=== PATIENT | female | born 1990 | race Caucasian/White ===

== ENCOUNTER 2016-12-03 09:05 | Emergency (ER) | payer OTHER ==
[2016-12-03 09:10] VITALS: BP 107/60; PULSE 84; TEMP 97.9; BMI 41.3
--- NOTE | 2016-12-03 09:26 | PDOC ---
History of Present Illness - General Chief Complaint: Vaginal Bleeding Stated Complaint: 6 WKS , BLEEDING Time Seen by Provider: 12/03/16 09:25 History Source: Patient Exam Limitations: No Limitations - History of Present Illness Travel History: No Initial Comments: 12/03/16 09:25 c/o vag LMP 10/01, bleeding. And found to be in October. Dates was seen at [facility] for a scant amount of vaginal bleeding and was discharged with a diagnosis of threatened AB. States bleeding resolved, and had felt well since. Was seen by her private physician on November 27 who did a thorough exam and cleared to be healthy, saw VICE [employer]IDENT [employer] doctor on the and was told her beta hCG was 5000. States this morning when she woke up she found right red blood in her underwear, no clots or redness type substance, but also experiencing cramping in her abdomen. States is wearing a pad now and still has bleeding but is not profuse. Is 7 para 5, elective AB 1. Her, nausea vomiting diarrhea or constipation, denies any bowel problems. Denies any vaginal drainage other than bleeding. 5 children at home are all healthy and born vaginally 12/03/16 09:43 Timing/Duration: reports: getting worse Quality: reports: mild Abdominal Pain Onset Location: reports: generalized abdomen Activities at Onset: reports: none Aggravating Factors: improves with: None Alleviating Factors: improves with: None Past History - Travel Traveled outside of the country in the last 30 days: No Close contact w/someone who was outside of country & ill: No - Past Medical History Allergies/Adverse Reactions: Allergies Allergy/AdvReac Type Severity Reaction Status Date / Time No Known Allergies Allergy Verified 12/03/16 09:10 Home Medications: Ambulatory Orders NK [No Known Home Medication] 12/03/16 Anemia: Yes Asthma: Yes (No meds) Cancer: No Cardiac Disorders: No Diabetes: No HTN: No Seizures: No Thyroid Disease: No - Psycho/Social/Smoking Cessation Hx Anxiety: No Suicidal Ideation: No Smoking History: Never smoked Have you smoked in the past 12 months: No Hx Alcohol Use: No Drug/Substance Use Hx: No Hx Substance Use Treatment: No Abd/GI Specific PMHX - Complaint Specific PMHX Colitis: No Review of Systems - Review of Systems Able to Perform ROS?: Yes Is the patient limited Pashto proficient: Yes Constitutional: Yes: Symptoms Reported, Malaise HEENTM: Yes: See HPI. No: Symptoms Reported *Physical Exam - Vital Signs Last Vital Signs Temp Pulse Resp BP Pulse Ox 97.9 F 84 16 107/60 98 12/03/16 09:08 12/03/16 09:08 12/03/16 09:08 12/03/16 09:08 12/03/16 09:08 - Physical Exam General Appearance: Yes: Nourished, Appropriately Dressed, Apparent Distress, Mild Distress HEENT: positive: MICAELA, Normal ENT Inspection, TMs Normal, Pharynx Normal Neck: positive: Supple, Other. negative: Tender, Lymphadenopathy (R), Lymphadenopathy (L) Respiratory/Chest: positive: Lungs Clear, Normal Breath Sounds Cardiovascular: positive: Regular Rate Gastrointestinal/Abdominal: positive: Tender (generalize tenderness, with mildly worse at suprapubic. No rebound or guarding. Difficult to assess as patient is morbidly obese), Soft Extremity: positive: Normal Capillary Refill, Normal Inspection, Normal Range of Motion Integumentary: positive: Normal Color, Warm, Pale Neurologic: positive: cartridge gauger II-XII NML intact, Fully Oriented, Alert, Normal Mood/ Affect, Normal Response, Motor Strength 02/09 ED Treatment Course - LABORATORY CBC & Chemistry Diagram: 12/03/16 09:29 Progress Note - Progress Note Progress Note: Threatened AB, will obtain labs, and then ultrasound. Patient updated to plan Medical Decision Making - Medical Decision Making 12/03/16 14:00 Beta hCG resident [id number], ultrasound reveals an intrauterine . Patient informed these results, we'll discharge and have follow-up with ADMISSIONS GATE ATTENDANT for *DC/Admit/Observation/Transfer Diagnosis at time of Disposition: Threatened in early - Discharge Dispostion Disposition: HOME Condition at time of disposition: Stable Admit: No - Patient Instructions Printed Discharge Instructions: DI for Threatened Additional Instructions: Rest, drink lots of fluids: Teas, water, soups Continue [id number] medications for symptomatic relief Tylenol for fever and pain May use Zofran-one tablet dissolved on tongue as needed for nauseousness. May repeat times one every 8 hours Followup with private physician in one to 2 days as needed Return to emergency department for worsened symptoms, vaginal bleeding, cramping , fevers, dehydration - Post Discharge Activity Work/School Note: Back to Work
--- NOTE | 2016-12-03 09:30 | PDOC ---
*Physical Exam - Vital Signs Last Vital Signs Temp Pulse Resp BP Pulse Ox 97.9 F 84 16 107/60 98 12/03/16 09:08 12/03/16 09:08 12/03/16 09:08 12/03/16 09:08 12/03/16 09:08 - Physical Exam Comments: 12/03/16 09:30 MIDLEVEL NOTE Pt seen by Midlevel Provider under my direct supervision. Pt interviewed and examined. Ancillary studies reviewed. I agree with plan as outlined by Midlevel Provider. Laboratory Results - last 24 hr 12/03/16 12/03/16 12/03/16 09:29 09:29 09:43 WBC 7.8 RBC 4.48 Hgb 11.2 Hct 35.0 MCV 78.2 L MCHC 32.0 RDW 14.2 Plt Count 268 D MPV 8.2 D Neutrophils % 66.5 Lymphocytes % 22.7 Monocytes % 6.4 Eosinophils % 3.8 D Basophils % 0.6 Beta HCG, Quant 80410.4 Urine Color Yellow Urine Appearance Slcloudy Urine pH 7.0 Ur Specific [place] 1.014 Urine Protein Negative Urine Glucose (UA) Negative Urine Ketones Negative Urine Blood 3+ H Urine Nitrite Negative Urine Bilirubin Negative Urine Urobilinogen Negative Ur Leukocyte Esterase 1+ H 12/03/16 13:40 Pelvic ultrasound Single IUP, 6 weeks and 4 days 1.7 cm left ovarian cyst with intraluminal debris ED Treatment Course - LABORATORY CBC & Chemistry Diagram: 12/03/16 09:29 *DC/Admit/Observation/Transfer Diagnosis at time of Disposition: Threatened in early - Discharge Dispostion Disposition: HOME Condition at time of disposition: Stable - Prescriptions Prescriptions: Cephalexin Monohydrate [Keflex -] 500 mg PO Q12H #14 capsule - Patient Instructions Printed Discharge Instructions: DI for Threatened Additional Instructions: Rest, drink lots of fluids: Teas, water, soups Continue [id number] medications for symptomatic relief Tylenol for fever and pain May use Zofran-one tablet dissolved on tongue as needed for nauseousness. May repeat times one every 8 hours Followup with private physician in one to 2 days as needed Return to emergency department for worsened symptoms, vaginal bleeding, cramping , fevers, dehydration - Post Discharge Activity Work/School Note: Back to Work
[2016-12-03 10:15] LABS: BASOPHIL 0.6 % (0-2.0); EOSINOPHIL 3.8 % (0-4.5); MCH 25.1 pg (25.7-33.7); MEAN CELL VOLUME 78.2 fl (80-96); MEAN PLT VOLUME 8.2 fl (7.5-11.1); NEUTROPHILS 66.5 % (42.8-82.8); PLATELET COUNT 268 K/MM3 (134-434); RDW 14.2 % (11.6-15.6); WHITE BLOOD COUNT 7.8 K/mm3 (4.0-10.0)
[2016-12-03 10:17] LABS: URINE APPEARANCE SLCLOUDY; URINE BILIRUBIN NEGATIVE (NEGATIVE); URINE COLOR YELLOW; URINE GLUCOSE (UA) NEGATIVE (NEGATIVE); URINE KETONE NEGATIVE (NEGATIVE); URINE NITRITE NEGATIVE (NEGATIVE); URINE PROTEIN NEGATIVE (NEGATIVE); URINE UROBILINOGEN NEGATIVE E.U./dl (0.2-1.0)
[2016-12-03 10:18] LABS: URINE BLOOD 3+ (NEGATIVE); URINE LEUK ESTERASE 1+ (NEGATIVE)
[2016-12-03 11:41] LABS: URINE BACTERIA FEW /hpf (NONE SEEN)
--- NOTE | 2016-12-05 13:43 | PDOC ---
Patient Follow-up (Call Back) - Post ED Follow - Up Condition at time of discharge: Stable Disposition at time of original discharge: HOME Reason for Call Back: Abnwl. Microbiology (urine c & S + of E. coli sensitive to keflex will order keflex 500 mg bid for 7 days , pt.,called sent rx to [facility], pt. called to inform her.)
== END 2016-12-03 14:20 | disposition home or self-care (01) ==
LOC: JER 09:05
DX: O20.0 Threatened abortion (principal); Z3A.01 Less than 8 weeks gestation of pregnancy
CPT/HCPCS: 36415; 76801-TC; 81003; 81015; 84702; 85025; 86850; 86900; 86901; 87086; 87186; 99284-25

== ENCOUNTER 2016-12-09 17:32 | Emergency (ER) | payer OTHER ==
[2016-12-09 17:52] VITALS: TEMP 97.2; BMI 41.2
--- NOTE | 2016-12-09 19:07 | PDOC ---
History of Present Illness - General Chief Complaint: Vaginal Bleeding Stated Complaint: VAGINAL BLEEDING Time Seen by Provider: 12/09/16 18:59 History Source: Patient Exam Limitations: No Limitations - History of Present Illness Travel History: No Timing/Duration: reports: intermittent Quality: reports: cramping Abdominal Pain Onset Location: reports: other (pelvic) Pain Radiation: reports: no radiation Activities at Onset: reports: none Aggravating Factors: improves with: None Alleviating Factors: improves with: None Past History - Travel Traveled outside of the country in the last 30 days: No Close contact w/someone who was outside of country & ill: No - Past Medical History Allergies/Adverse Reactions: Allergies Allergy/AdvReac Type Severity Reaction Status Date / Time No Known Allergies Allergy Verified 12/09/16 17:47 Home Medications: Ambulatory Orders Cephalexin Monohydrate [Keflex -] 500 mg PO Q12H #14 capsule 12/05/16 Anemia: Yes Asthma: Yes Cancer: No Cardiac Disorders: No Diabetes: No HTN: No Seizures: No Thyroid Disease: No - Reproductive History Is Patient Now?: Yes (#): 7 Para: 5 Therapeutic (s) & number: Yes (x1) - Psycho/Social/Smoking Cessation Hx Anxiety: No Suicidal Ideation: No Smoking History: Never smoked Have you smoked in the past 12 months: No Hx Alcohol Use: No Drug/Substance Use Hx: No Hx Substance Use Treatment: No Abd/GI Specific PMHX - Complaint Specific PMHX Colitis: No Review of Systems - Review of Systems Able to Perform ROS?: Yes Comments:: 12/09/16 19:33 CONSTITUTIONAL: Absent: fever, chills, diaphoresis, generalized weakness, malaise, loss of appetite HEENT: Absent: rhinorrhea, nasal congestion, throat pain, throat swelling, difficulty swallowing, mouth swelling, ear pain, eye pain, visual Changes CARDIOVASCULAR: Absent: chest pain, loss of consciousness, palpitations, irregular heart rate, peripheral edema RESPIRATORY: Absent: cough, shortness of breath, dyspnea with exertion, orthopnea, wheezing, stridor, hemoptysis GASTROINTESTINAL: +Pelvic cramping/vaginal spotting Absent: abdominal distension, nausea, vomiting, diarrhea, constipation, melena, hematochezia GENITOURINARY: Absent: dysuria, frequency, urgency, hesitancy, hematuria, flank pain, genital pain MUSCULOSKELETAL: Absent: myalgia, arthralgia, joint swelling SKIN: Absent: rash, itching, pallor HEMATOLOGIC/IMMUNOLOGIC: Absent: easy bleeding, easy bruising, lymphadenopathy, frequent infections ENDOCRINE: Absent: unexplained weight gain, unexplained weight loss, heat intolerance, cold intolerance NEUROLOGIC: Absent: headache, focal weakness or paresthesias, dizziness, unsteady gait, seizure, mental status changes, bladder or bowel incontinence PSYCHIATRIC: Absent: anxiety, depression, suicidal or homicidal ideation, hallucinations. Is the patient limited Bengali proficient: No *Physical Exam - Vital Signs Last Vital Signs Temp Pulse Resp BP Pulse Ox 97.2 F L 91 H 19 121/74 100 12/09/16 17:48 12/09/16 17:48 12/09/16 17:48 12/09/16 17:48 12/09/16 17:48 - Physical Exam Comments: 12/09/16 19:34 GENERAL: Well developed, well nourished. Awake and alert. No acute distress. HEENT: Normocephalic, atraumatic. PERRLA, EOMI. No conjunctival pallor. Sclera are non- icteric. Moist mucous membranes. Oropharynx is clear. NECK: Supple. Full ROM. No JVD. Carotid pulses 2+ and symmetric, without bruits. No thyromegaly. No lymphadenopathy. CARDIOVASCULAR: Regular rate and rhythm. No murmurs, rubs, or gallops. Distal pulses are 2+ and symmetric. PULMONARY: No evidence of respiratory distress. Lungs clear to auscultation bilaterally. No wheezing, rales or rhonchi. ABDOMINAL: Soft. Non-tender. Non-distended. No rebound or guarding. No organomegaly. Normoactive bowel sounds. MUSCULOSKELETAL Normal range of motion at all joints. No bony deformities or tenderness. No CVA tenderness. EXTREMITIES: No cyanosis. No clubbing. No edema. No calf tenderness. SKIN: Warm and dry. Normal capillary refill. No rashes. No jaundice. NEUROLOGICAL: Alert, awake, appropriate. Cranial nerves 2-12 intact. No deficits to light touch and temperature in face, upper extremities and lower extremities. No motor deficits in the in face, upper extremities and lower extremities. Normoreflexic in the upper and lower extremities. Normal speech. Toes are down- going bilaterally. Gait is normal without ataxia. PSYCHIATRIC: Cooperative. Good eye contact. Appropriate mood and affect. Pelvic: External genitalia normal without lesions. Vaginal vault is clear without blood or discharge. Cervix is long and closed. Uterus is nontender and normal in size. ED Treatment Course - LABORATORY CBC & Chemistry Diagram: 12/09/16 19:29 12/09/16 19:29 Progress Note - Progress Note Progress Note: 26-year-old female presents to the emergency department complaining of pelvic cramping with vaginal bleeding since this morning. She noticed some clots at approximately 1700 hrs. this evening. Patient denies any other pains, flank pain, urinary symptoms: Frequency/urgency/hesitancy, chest pain, shortness of breath, nausea/vomiting, fever/chills/diarrhea, constipation. 11/22/2016: pt states she was spotting for 7 days and was seen at [facility]. Patient had a transvaginal sonogram which indicated possibly too early for cardiac activity. D/C with Threatened AB. Pt was recently dx with a UTI and is currently on abx but did not take her dose this evening. Pt was seen on : [facility] OB: Dr. Thomas/seen x1 week ago/Pt says she was examined and had labs drawn LMP: 10/02/2016 Preliminary Transvaginal ultrasound: Single intrauterine gestational sac is identified, with yolk sac and pole and cardiac activity. No abnormal fluid collections seen. heart rate is 143. Estimated gestational age 6 weeks 6 days crown-rump length of 12 mm, clean sac diameter 18 mm No solid adnexal masses seen. 15 mm left ovarian cysts, probably complex corpus luteum cyst. Appropriate vascular waveforms at left ovary. Right ovary is not visualized. *DC/Admit/Observation/Transfer Diagnosis at time of Disposition: Threatened in early UTI (urinary tract infection) Qualifiers: Urinary tract infection type: acute cystitis Hematuria presence: without hematuria Qualified Code(s): N30.00 - Acute cystitis without hematuria - Discharge Dispostion Disposition: HOME Condition at time of disposition: Guarded Admit: No - Referrals Referrals: STAFF,NOT ON [Primary Care Provider] - Mireya Thomas MD [Staff Physician] - - Patient Instructions Printed Discharge Instructions: Urinary Tract Infection, DI for Threatened Additional Instructions: Beta HCG= 26486 today It is highly recommended that you follow with your director [place] within 24 hours. Increase fluids Pelvic rest Tylenol for pain Return to the emergency department for severe/persistent or worsening symptoms Continue taking your antibiotics for your urinary tract infection. you were given a dose of Macrobid 100mg this evening in the ER
[2016-12-09 19:44] LABS: BASOPHIL 0.6 % (0-2.0); EOSINOPHIL 4.7 % (0-4.5); MCHC 32.5 g/dl (32.0-36.0); MEAN CELL VOLUME 76.9 fl (80-96); NEUTROPHILS 59.5 % (42.8-82.8); PLATELET COUNT 325 K/MM3 (134-434); RDW 13.9 % (11.6-15.6); WHITE BLOOD COUNT 8.1 K/mm3 (4.0-10.0)
[2016-12-09 19:48] LABS: URINE APPEARANCE CLOUDY; URINE BILIRUBIN NEGATIVE (NEGATIVE); URINE COLOR RED; URINE GLUCOSE (UA) NEGATIVE (NEGATIVE); URINE KETONE NEGATIVE (NEGATIVE); URINE NITRITE NEGATIVE (NEGATIVE); URINE UROBILINOGEN 4.0 E.U/dl E.U./dl (0.2-1.0)
[2016-12-09 20:09] LABS: ALBUMIN 3.3 g/dl (3.4-5.0); ANION GAP 7 (8-16); CALCIUM 8.6 mg/dL (8.5-10.1); CO2 26 mmol/L (21-32); CREATININE 0.8 mg/dL (0.55-1.02); GLUCOSE,RANDOM 96 mg/dL (74-106); SGOT/AST 20 U/L (15-37); SGPT/ALT 20 U/L (12-78)
[2016-12-09 20:11] LABS: ALK PHOS 120 U/L (45-117); BILIRUBIN,TOTAL 0.2 mg/dL (0.2-1.0); TOT PROT 7.9 g/dl (6.4-8.2)
--- NOTE | 2016-12-09 20:13 | PDOC ---
*Physical Exam - Vital Signs Last Vital Signs Temp Pulse Resp BP Pulse Ox 97.2 F L 91 H 19 121/74 100 12/09/16 17:48 12/09/16 17:48 12/09/16 17:48 12/09/16 17:48 12/09/16 17:48 ED Treatment Course - LABORATORY CBC & Chemistry Diagram: 12/09/16 19:29 12/09/16 19:29 - ADDITIONAL ORDERS Additional order review: Laboratory Results 12/09/16 19:29 Sodium 136 Potassium 4.0 Chloride 103 Carbon Dioxide 26 Anion Gap 7 L BUN 10 D Creatinine 0.8 D Creat Clearance w eGFR > 60 Random Glucose 96 Calcium 8.6 Total Bilirubin 0.2 AST 20 ALT 20 Alkaline Phosphatase 120 H Total Protein 7.9 Albumin 3.3 L 12/09/16 19:29 RBC 4.33 MCV 76.9 L MCHC 32.5 RDW 13.9 MPV 8.0 Neutrophils % 59.5 Lymphocytes % 29.6 D Monocytes % 5.6 Eosinophils % 4.7 H Basophils % 0.6 Medical Decision Making - Medical Decision Making 12/09/16 20:12 Patient seen and evaluated with the nurse practitioner. I agree with the overall evaluation, assessment, and management with the following summary of visit: 26-year-old female presents with persistent first trimester vaginal bleeding/ spotting, workup to date has been within normal limits, presents for further evaluation. Vital signs stable. Agree with assessment and management: Type and screen, hCG level, ultrasound. Dispo accordingly. *DC/Admit/Observation/Transfer Diagnosis at time of Disposition: Antepartum hemorrhage Qualifiers: Trimester: first trimester Qualified Code(s): O46.91 - Antepartum hemorrhage, unspecified, first trimester
[2016-12-09 20:22] LABS: URINE BLOOD 3+ (NEGATIVE); URINE LEUK ESTERASE 2+ (NEGATIVE); URINE PROTEIN 1+ (NEGATIVE)
[2016-12-09 20:25] LABS: URINE MUCUS RARE; URINE RBC 5004 /hpf (0-3); URINE WBC 38 /hpf (3-5)
[2016-12-09] MEDS ORDERED: NITROFURANTOIN MACROCRYSTAL 50 MG CAPSULE (FP) PO SCH (22:15)
[2016-12-09] MEDS ORDERED: NITROFURANTOIN MACROCRYSTAL 50 MG CAPSULE (FP) ONE (22:16)
[2016-12-09 22:42] VITALS: BP 114/70; PULSE 78
== END 2016-12-09 22:42 | disposition home or self-care (01) ==
LOC: JER 17:32
DX: O20.0 Threatened abortion (principal); O23.41 Unspecified infection of urinary tract in pregnancy, first trimester; Z3A.01 Less than 8 weeks gestation of pregnancy
CPT/HCPCS: 36415; 76817-TC; 80053; 81003; 81015; 84702; 85025; 86850; 86900; 86901; 99283-25

== ENCOUNTER 2016-12-28 15:18 | Emergency (ER) | payer OTHER ==
--- NOTE | 2016-12-28 15:24 | PDOC ---
Rapid Medical Evaluation Time Seen by Provider: 12/28/16 15:24 Medical Evaluation: Allergies Allergy/AdvReac Type Severity Reaction Status Date / Time No Known Allergies Allergy Verified 12/09/16 17:47 12/28/16 15:24 26 year old approx 10 wks LMP 10/02/16 who presents for evaluation of vaginal bleeding and cramping. SEen here 3/4 for same. -V/s unremarkable. -Labs including CBC, bhcg, T&S, UA/cx -Obstetric u/s -To Main ED for further evaluation
[2016-12-28 15:27] VITALS: BP 119/70; PULSE 83; TEMP 97.6; BMI 41.3
[2016-12-28 15:56] LABS: BASOPHIL 0.6 % (0-2.0); EOSINOPHIL 4.8 % (0-4.5); MCH 24.9 pg (25.7-33.7); MCHC 32.3 g/dl (32.0-36.0); MEAN CELL VOLUME 77.1 fl (80-96); MEAN PLT VOLUME 8.1 fl (7.5-11.1); NEUTROPHILS 59.3 % (42.8-82.8); PLATELET COUNT 315 K/MM3 (134-434); RDW 13.8 % (11.6-15.6); WHITE BLOOD COUNT 8.3 K/mm3 (4.0-10.0)
[2016-12-28 15:57] LABS: URINE APPEARANCE SLCLOUDY; URINE BILIRUBIN NEGATIVE (NEGATIVE); URINE COLOR YELLOW; URINE GLUCOSE (UA) NEGATIVE (NEGATIVE); URINE KETONE NEGATIVE (NEGATIVE); URINE NITRITE NEGATIVE (NEGATIVE); URINE PROTEIN NEGATIVE (NEGATIVE); URINE UROBILINOGEN NEGATIVE E.U./dl (0.2-1.0)
[2016-12-28 15:59] LABS: URINE BLOOD 3+ (NEGATIVE); URINE LEUK ESTERASE TRACE (NEGATIVE)
[2016-12-28 16:01] LABS: URINE MUCUS RARE; URINE RBC 12 /hpf (0-3); URINE WBC 1 /hpf (3-5)
--- NOTE | 2016-12-28 16:35 | PDOC ---
History of Present Illness - General Chief Complaint: Vaginal Bleeding Stated Complaint: VAGINAL BLEEDING (8 WEEKS) Time Seen by Provider: 12/28/16 15:24 History Source: Patient Exam Limitations: No Limitations - History of Present Illness Travel History: No Initial Comments: 12/28/16 16:31 26-year-old 10 week female presents to the ED with complaints of vaginal bleeding with some cramping since yesterday. Patient states had an ultrasound done on December 09 which showed she was approximately 8 weeks . Patient states came because of abdominal pain with bleeding although she has been having spotting since the onset of . Pt decided come to the ER for further evaluation. Patient denies passing a large clot, nausea, weakness, or dizziness. Timing/Duration: reports: constant Quality: reports: mild, cramping Abdominal Pain Onset Location: reports: suprapubic Pain Radiation: reports: no radiation Activities at Onset: reports: none Aggravating Factors: improves with: None Alleviating Factors: improves with: None Past History - Past Medical History Allergies/Adverse Reactions: Allergies Allergy/AdvReac Type Severity Reaction Status Date / Time No Known Allergies Allergy Verified 12/28/16 15:28 Home Medications: Ambulatory Orders Cephalexin Monohydrate [Keflex -] 500 mg PO Q12H #14 capsule 12/05/16 Anemia: Yes Asthma: Yes Cancer: No Cardiac Disorders: No Diabetes: No HTN: No Seizures: No Thyroid Disease: No - Reproductive History Is Patient Now?: Yes (#): 7 Para: 5 Therapeutic (s) & number: Yes (x1) - Psycho/Social/Smoking Cessation Hx Anxiety: No Suicidal Ideation: No Smoking History: Never smoked Have you smoked in the past 12 months: No Information on smoking cessation initiated: No Hx Alcohol Use: No Drug/Substance Use Hx: No Hx Substance Use Treatment: No Patient Lives Alone: No Lives with/in: spouse/SO Abd/GI Specific PMHX - Complaint Specific PMHX Colitis: No Review of Systems - Review of Systems Able to Perform ROS?: Yes Constitutional: No: Symptoms Reported HEENTM: No: Symptoms Reported Respiratory: No: Symptoms reported Cardiac (ROS): No: Symptoms Reported ABD/GI: Yes: Abdominal cramping : Yes: Discharge Musculoskeletal: No: Symptoms Reported Integumentary: No: Symptoms Reported Neurological: No: Symptoms reported Endocrine: No: Symptoms Reported *Physical Exam - Vital Signs Last Vital Signs Temp Pulse Resp BP Pulse Ox 97.6 F 83 18 119/70 98 12/28/16 15:20 12/28/16 15:20 12/28/16 15:20 12/28/16 15:20 12/28/16 15:20 - Physical Exam General Appearance: Yes: Nourished, Appropriately Dressed. No: Apparent Distress HEENT: negative: Pale Conjunctivae Respiratory/Chest: positive: Lungs Clear, Normal Breath Sounds. negative: Respiratory Distress, Accessory Muscle Use Cardiovascular: positive: Regular Rhythm, Regular Rate. negative: Murmur Female Pelvic Exam: positive: cervical os closed, vaginal bleeding (bright red scant amount) Gastrointestinal/Abdominal: positive: Soft, Tenderness (mild mid suprapubic) Extremity: positive: Normal Inspection Integumentary: positive: Normal Color, Warm, Moist Neurologic: positive: Normal Mood/Affect, Motor Strength 5/5 (ambulatory) ED Treatment Course - LABORATORY CBC & Chemistry Diagram: 12/28/16 15:28 12/28/16 15:30 - ADDITIONAL ORDERS Additional order review: Laboratory Results 12/28/16 15:29 Urine Color Yellow Urine Appearance Slcloudy Urine pH 7.0 Ur Specific [place] 1.019 Urine Protein Negative Urine Glucose (UA) Negative Urine Ketones Negative Urine Blood 3+ H Urine Nitrite Negative Urine Bilirubin Negative Urine Urobilinogen Negative Ur Leukocyte Esterase Trace H D Urine RBC 12 Urine WBC 1 Ur Epithelial Cells Moderate Urine Mucus Rare 12/28/16 15:28 RBC 4.48 MCV 77.1 L MCHC 32.3 RDW 13.8 MPV 8.1 Neutrophils % 59.3 Lymphocytes % 29.5 Monocytes % 5.8 Eosinophils % 4.8 H Basophils % 0.6 Medical Decision Making - Medical Decision Making 12/28/16 16:39 Patient with complaints of vaginal bleeding and cramping since yesterday. Patient 7 para 5 and is approximately 10 weeks . Patient ordered for labs and urine and ultrasound. 12/28/16 17:07 Ultrasound done on December 09 showed a crown-rump length measurement of 7 weeks 2 days. 12/28/16 17:08 Laboratory Tests 12/03/16 12/09/16 12/28/16 09:43 19:29 15:28 WBC 8.3 Hgb 11.2 Hct 34.6 Plt Count 315 Neutrophils % 59.3 Eosinophils % 4.8 H Beta HCG, Quant 39746.4 42815.2 Urine Blood Urine Nitrite Ur Leukocyte Esterase Urine RBC Urine WBC 12/28/16 12/28/16 15:28 15:29 WBC Hgb Hct Plt Count Neutrophils % Eosinophils % Beta HCG, Quant 29721.9 Urine Blood 3+ H Urine Nitrite Negative Ur Leukocyte Esterase Trace H D Urine RBC 12 Urine WBC 1 ultrasound pending. 12/28/16 17:27 Ultrasound shows a single nonviable intrauterine measuring 7 weeks 2 days with no cardiac activity. Patient will be discharged home to follow-up with her BREASTER *DC/Admit/Observation/Transfer Diagnosis at time of Disposition: Incomplete spontaneous - Discharge Dispostion Disposition: HOME Condition at time of disposition: Good - Patient Instructions Printed Discharge Instructions: DI for Miscarriage Additional Instructions: Please follow-up with your BREASTER . Take ultrasound report with you. You may pass this fetus without medical intervention but do need to follow-up as recommended. You may take Tylenol Motrin if you develop any cramping and return to ED if you develop heavy severe vaginal bleeding or severe cramping
[2016-12-28 17:39] LABS: ALBUMIN 3.2 g/dl (3.4-5.0); ALK PHOS 125 U/L (45-117); ANION GAP 10 (8-16); BILIRUBIN,TOTAL 0.2 mg/dL (0.2-1.0); CALCIUM 9.2 mg/dL (8.5-10.1); CO2 24 mmol/L (21-32); CREATININE 0.7 mg/dL (0.55-1.02); GLUCOSE,RANDOM 92 mg/dL (74-106); SGOT/AST 17 U/L (15-37); SGPT/ALT 17 U/L (12-78)
== END 2016-12-28 17:36 | disposition home or self-care (01) ==
LOC: JER 15:18
DX: O03.4 Incomplete spontaneous abortion without complication (principal); Z3A.01 Less than 8 weeks gestation of pregnancy
CPT/HCPCS: 36415; 76801-TC; 76817-TC; 80053; 81003; 81015; 84702; 85025; 86850; 86900; 86901; 87086; 99284-25

== ENCOUNTER 2017-05-28 10:43 | Emergency (ER) | payer OTHER ==
[2017-05-28 10:48] VITALS: BMI 39.4
[2017-05-28] MEDS ORDERED: SODIUM CHLORIDE 1,000 ML IV STA (12:26)
[2017-05-28] MEDS ORDERED: ACETAMINOPHEN 1000 MG/100 ML VIAL (NON FORMULARY) IVPB ONE (12:27)
--- NOTE | 2017-05-28 12:34 | PDOC ---
History of Present Illness <Summer Lim - Last Filed: 05/28/17 14:20> - General History Source: Patient Exam Limitations: No Limitations - History of Present Illness Initial Comments: 05/28/17 12:29 27-year-old female currently 16 weeks presents the ED with complaints of generalized body aches, abdominal cramping, sore throat, and difficulty swallowing x 2 days. Patient denies recent travel, recent illnesses states had an ultrasound done early last month which was normal. Patient states does receive routine care. Patient denies medical history, recent travel, recent illness. Patient denies vaginal discharge, vaginal bleeding, urinary complaints, diarrhea, chest pain, shortness of breath. Timing/Duration: getting worse Severity: moderate Associated Symptoms: reports: fever/chills, weakness <Nan Bergeron - Last Filed: 05/28/17 18:29> - General Chief Complaint: Pain Stated Complaint: BODYACHE, COLD (16 WKS )/ABD PAIN Time Seen by Provider: 05/28/17 12:20 Past History <Summer Lim - Last Filed: 05/28/17 14:20> - Travel Traveled outside of the country in the last 30 days: No Close contact w/someone who was outside of country & ill: No - Past Medical History Anemia: Yes Asthma: Yes Cancer: No Cardiac Disorders: No Diabetes: No HTN: No Seizures: No Thyroid Disease: No - Reproductive History (#): 7 Para: 5 Therapeutic (s) & number: Yes (x1) - Psycho/Social/Smoking Cessation Hx Anxiety: No Suicidal Ideation: No Smoking History: Never smoked Have you smoked in the past 12 months: No Information on smoking cessation initiated: No Hx Alcohol Use: No Drug/Substance Use Hx: No Substance Use Type: None Hx Substance Use Treatment: No Patient Lives Alone: No Lives with/in: parents <Nan Bergeron - Last Filed: 05/28/17 18:29> - Past Medical History Allergies/Adverse Reactions: Allergies Allergy/AdvReac Type Severity Reaction Status Date / Time No Known Allergies Allergy Verified 05/28/17 10:44 Home Medications: Ambulatory Orders Azithromycin [Zithromax 250mg Tablets -] 250 mg PO DAILY #4 tab 05/28/17 Review of Systems - Review of Systems Able to Perform ROS?: Yes Constitutional: Yes: Chills, Fever, Weakness HEENTM: Yes: Throat Pain, Difficulty Swallowing Respiratory: No: Symptoms reported Cardiac (ROS): No: Symptoms Reported ABD/GI: Yes: Abdominal cramping : No: Symptoms Reported Musculoskeletal: Yes: Joint Pain (generalized) Integumentary: No: Symptoms Reported Neurological: No: Symptoms reported <RubioMarinaa - Last Filed: 05/28/17 18:29> *Physical Exam - Vital Signs Last Vital Signs Temp Pulse Resp BP Pulse Ox 98.2 F 115 H 18 96/76 100 05/28/17 10:45 05/28/17 10:45 05/28/17 10:45 05/28/17 10:45 05/28/17 10:45 <Summer Lim - Last Filed: 05/28/17 14:20> - Vital Signs Last Vital Signs Temp Pulse Resp BP Pulse Ox 98.2 F 115 H 18 96/76 100 05/28/17 10:45 05/28/17 10:45 05/28/17 10:45 05/28/17 10:45 05/28/17 10:45 - Physical Exam General Appearance: Yes: Nourished, Appropriately Dressed. No: Apparent Distress HEENT: positive: EOMI, MICAELA, TMs Normal, Pharyngeal Erythema, Tonsillar Erythema. negative: Muffled/Hoarse voice, Tonsillar Exudate Neck: positive: Normal Thyroid, Supple. negative: Lymphadenopathy (R), Lymphadenopathy (L) Respiratory/Chest: positive: Lungs Clear, Normal Breath Sounds. negative: Respiratory Distress, Accessory Muscle Use Cardiovascular: positive: Regular Rhythm, Tachycardia. negative: Murmur Gastrointestinal/Abdominal: positive: Soft, Tenderness (right upper quad. positive Moise's. mild right periumbilical. No right lower quadrant tenderness) Musculoskeletal: negative: CVA Tenderness Extremity: positive: Normal Capillary Refill Integumentary: positive: Normal Color, Warm, Moist Neurologic: positive: Motor Strength 5/5 (ambulatory) <Nan Bergeron - Last Filed: 05/28/17 18:29> Procedures - Bedside Ultrasound Bedside Ultrasound: Gallbladder <Summer Lim - Last Filed: 05/28/17 14:20> ED Treatment Course - LABORATORY CBC & Chemistry Diagram: 05/28/17 13:10 05/28/17 13:10 - ADDITIONAL ORDERS Additional order review: Laboratory Results 05/28/17 05/28/17 13:10 13:10 Lactic Acid 0.7 Lipase Cancelled 05/28/17 13:10 RBC 4.11 MCV 77.0 L MCHC 33.3 RDW 13.7 MPV 8.8 Neutrophils % 78.3 D Lymphocytes % 12.7 D Monocytes % 6.7 Eosinophils % 1.9 Basophils % 0.4 - Medications Given in the ED: ED Medications Discontinued Medications Generic Name Dose Route Start Last Admin Trade Name Tony PRN Reason Stop Dose Admin Acetaminophen 1,000 mg 05/28/17 12:27 05/28/17 13:05 Ofirmev Injection - IVPB 05/28/17 12:28 1,000 mg ONCE ONE Administration Sodium Chloride 1,000 mls @ 1,000 mls/hr 05/28/17 12:26 05/28/17 13:05 Normal Saline - IV 05/28/17 13:25 1,000 mls/hr ASDIR STA Administration <Summer Lim - Last Filed: 05/28/17 14:20> - LABORATORY CBC & Chemistry Diagram: 05/28/17 13:10 05/28/17 13:10 - RADIOLOGY Radiology Studies Ordered: Category Date Time Status GALLBLADDER US [US] Stat Ultrasound 05/28/17 12:28 Ordered US(SINGLE) [US] Stat Ultrasound 05/28/17 12:28 Ordered <Nan Bergeron - Last Filed: 05/28/17 18:29> Medical Decision Making - Medical Decision Making 05/28/17 13:51 focused ED ultrasound RUQ , indication right sided abdominal pain gallbladder scanned in two planes. no stones, no wall thickening or edema. no pericholecystic fluid wall measured 3.1 mm CBD 3.9 mm impression: normal gallbadder uterus scanned in two planes, assess well being movement noted. heart rate 141 bpm. impression: normal heart rate cirilli <Summer Lim - Last Filed: 05/28/17 14:20> - Medical Decision Making 05/28/17 12:34 Patient complains of fever and chills,sore throat, and abdominal pain currently 16 weeks . On exam patient right upper quadrant tenderness, concerning for cholecystitis. Patient also on exam had pharyngeal erythema with subjective complaints of difficulty swallowing. Patient will will have rapid strep collected septic workup initiated, IV Tylenol, lipase gallbladder ultrasound, and ultrasound. 05/28/17 15:57 Laboratory Tests 12/28/16 05/28/17 05/28/17 16:33 13:10 13:10 WBC 9.3 Hgb 10.5 L Hct 31.7 L Neutrophils % 78.3 D Sodium 136 Potassium 3.8 Chloride 103 Carbon Dioxide 24 Anion Gap 9 BUN 4 L D Creatinine 0.4 L D Random Glucose 82 Lactic Acid AST 20 ALT 27 D Alkaline Phosphatase 145 H Total Protein 6.6 Albumin 2.5 L D Lipase 74 Urine Ketones Urine Blood Ur Leukocyte Esterase Urine WBC Blood Type O POSITIVE Antibody Screen Negative 05/28/17 05/28/17 13:10 15:05 WBC Hgb Hct Neutrophils % Sodium Potassium Chloride Carbon Dioxide Anion Gap BUN Creatinine Random Glucose Lactic Acid 0.7 AST ALT Alkaline Phosphatase Total Protein Albumin Lipase Urine Ketones Trace H Urine Blood 1+ H Ur Leukocyte Esterase Negative Urine WBC 1 Blood Type Antibody Screen Patient positive for strep. Patient will be given azithromycin here in the ER waiting results of gallbladder ultrasound and ultrasound. 05/28/17 16:55 Ultrasound shows a single live intrauterine measuring 16 weeks 4 days. Gallbladder ultrasound shows hepatomegaly versus vital lobe of the liver measuring 19 cm in craniocaudal length with homogeneous echotexture. No gallstones are identified. Selected Entries 05/28/17 16:27 Temperature 98.6 F Pulse Rate [ 84 Right] Respiratory 18 Rate Blood Pressure 100/62 [Right Arm] O2 Sat by Pulse 100 Oximetry (%) <Nan Bergeron - Last Filed: 05/28/17 18:29> *DC/Admit/Observation/Transfer <Summer Lim - Last Filed: 05/28/17 14:20> <Nan Bergeron - Last Filed: 05/28/17 18:29> Diagnosis at time of Disposition: Strep throat - Discharge Dispostion Disposition: HOME Condition at time of disposition: Improved - Prescriptions Prescriptions: Azithromycin [Zithromax 250mg Tablets -] 250 mg PO DAILY #4 tab - Patient Instructions Printed Discharge Instructions: DI for Strep Throat Additional Instructions: Please start antibiotics tomorrow since your given your first dose here in the ER. May take Tylenol every 6-8 hours for fever and pain control. Eat soft nonabrasive foods. Please stay well-hydrated. Please follow-up with her PCP as needed.
[2017-05-28 13:28] LABS: BASOPHIL 0.4 % (0-2.0); EOSINOPHIL 1.9 % (0-4.5); MCH 25.6 pg (25.7-33.7); MCHC 33.3 g/dl (32.0-36.0); MEAN PLT VOLUME 8.8 fl (7.5-11.1); NEUTROPHILS 78.3 % (42.8-82.8); PLATELET COUNT 256 K/MM3 (134-434); RDW 13.7 % (11.6-15.6); WHITE BLOOD COUNT 9.3 K/mm3 (4.0-10.0)
[2017-05-28 13:49] LABS: ALBUMIN 2.5 g/dl (3.4-5.0); ANION GAP 9 (8-16); CALCIUM 8.7 mg/dL (8.5-10.1); CO2 24 mmol/L (21-32); GLUCOSE,RANDOM 82 mg/dL (74-106); SGOT/AST 20 U/L (15-37); SGPT/ALT 27 U/L (12-78)
[2017-05-28 13:52] LABS: ALK PHOS 145 U/L (45-117); BILIRUBIN,TOTAL 0.5 mg/dL (0.2-1.0); CREATININE 0.4 mg/dL (0.55-1.02); TOT PROT 6.6 g/dl (6.4-8.2)
[2017-05-28 15:19] LABS: URINE APPEARANCE SLCLOUDY; URINE BILIRUBIN NEGATIVE (NEGATIVE); URINE BLOOD 1+ (NEGATIVE); URINE COLOR YELLOW; URINE GLUCOSE (UA) NEGATIVE (NEGATIVE); URINE KETONE TRACE (NEGATIVE); URINE LEUK ESTERASE NEGATIVE (NEGATIVE); URINE NITRITE NEGATIVE (NEGATIVE); URINE PROTEIN NEGATIVE (NEGATIVE); URINE UROBILINOGEN NEGATIVE mg/dL (0.2-1.0)
[2017-05-28 15:27] LABS: URINE MUCUS RARE; URINE RBC 3 /hpf (0-3); URINE WBC 1 /hpf (3-5)
[2017-05-28] MEDS ORDERED: AZITHROMYCIN 250 MG TABLET PO ONE (15:58)
[2017-05-28] MEDS ORDERED: AZITHROMYCIN 250 MG TABLET ONE (16:05)
[2017-05-28 16:28] VITALS: BP 100/62; PULSE 84; TEMP 98.6
--- NOTE | 2017-05-28 17:16 | EKG ---
Test Reason : Blood Pressure : / mmHG Vent. Rate : 089 BPM Atrial Rate : 089 BPM P-R Int : 134 ms QRS Dur : 086 ms QT Int : 394 ms P-R-T Axes : 054 011 012 degrees QTc Int : 479 ms NORMAL SINUS RHYTHM NORMAL ECG NO PREVIOUS ECGS AVAILABLE Confirmed by JANIE SANTAMARIA MD ([id number]) on 05/28/2017 5:16:02 PM Referred By: Confirmed By:JANIE SANTAMARIA MD
--- NOTE | 2017-05-29 15:36 | PDOC ---
Patient Follow-up (Call Back) - Post ED Follow - Up Condition at time of discharge: Improved Disposition at time of original discharge: HOME Reason for Call Back: Abnwl. Microbiology (Patient with positive blood culture, pending organism, large gram-positive bacilli, called patient to assess her condition. She states she feels a lot better decreased pain however noticed some fullness on neck after waking up. She said she noted it when she lifts her head off the pillow. Denies any pain to area, no dysphagia, no fever, patient told to return for further evaluation if any complaints. She verbalized understanding will return if any)
== END 2017-05-28 16:58 | disposition home or self-care (01) ==
LOC: JER 10:43
PROC: 3E0337Z Introduction of Electrolytic and Water Balance Substance into Peripheral Vein, Percutaneous Approach (ICD-10-PCS; principal; 2017-05-28)
PROC: 3E033NZ Introduction of Analgesics, Hypnotics, Sedatives into Peripheral Vein, Percutaneous Approach (ICD-10-PCS; 2017-05-28)
DX: O99.89 Other specified diseases and conditions complicating pregnancy, childbirth and the puerperium (principal); J02.0 Streptococcal pharyngitis; B95.0 Streptococcus, group A, as the cause of diseases classified elsewhere; Z3A.16 16 weeks gestation of pregnancy
CPT/HCPCS: 36415; 76705-TC; 76801-TC; 76830-TC; 80053; 81003; 81015; 83605; 83690; 85025; 87040; 87070; 87077; 87086; 87430; 93005; 93010; 96361; 96374; 99285-25

== ENCOUNTER 2017-10-19 06:45 | Inpatient (IN) | payer OTHER ==
[2017-10-19] MEDS ORDERED: ELECTROLYTE-148 SOLN 1,000 ML IV SCH (07:30)
--- NOTE | 2017-10-19 07:45 | PN ---
Progress Note (short form) - Note Progress Note: cx 5 cm 100 vx -2 mi, fhr cat 1, irregular contraction
[2017-10-19] MEDS ORDERED: ALBUTEROL SO4 0.083% IH SOL 2.5 MG/3 ML VIAL.NEB. NEB PRN (07:50)
[2017-10-19] MEDS ORDERED: ALBUTEROL SO4 18 GM HFA INHALER IH PRN (07:50)
--- NOTE | 2017-10-19 07:51 | HP ---
Past Medical History - Primary Care Physician PCP:: London Okeefe - Admission Chief Complaint: 37.2weeks , garnad multiparity, obesity, labor History of Present Illness: 27 yo f G 8 [id number] 11/07/17 c/o contraction, bloody show, no rom, cx 6 cm 80 vx -3 mi ,bulging, fhr cat 1 with occasional mild variable , irregular contraction, , care at [facility], no record available. History Source: Patient Limitations to Obtaining History: No Limitations - Past Medical History Pulmonary: Yes: Asthma ...: 8 ...Para: 6 ...EDC by Dates: 11/07/17 Infectious Disease: Yes: STD's Psych: Yes: Depression - Past Surgical History Hx Myomectomy: No Hx Transabdominal Cerclage: No - Smoking History Smoking history: Never smoked Have you smoked in the past 12 months: No - Alcohol/Substance Use Hx Alcohol Use: No History of Substance Use: reports: None - Social History ADL: Independent Home Medications - Allergies Allergies/Adverse Reactions: Allergies Allergy/AdvReac Type Severity Reaction Status Date / Time No Known Allergies Allergy Verified 08/13/17 10:22 - Home Medications Home Medications: Ambulatory Orders Albuterol 0.083% Nebulizer Gabby [Ventolin 0.083% Nebulizer Soln -] 1 neb NEB Q4H PRN #1 vial 08/13/17 Albuterol Sulfate Inhaler - [Ventolin HFA Inhaler -] 2 inh PO Q4H PRN #1 inh MDD 6 08/13/17 Family Disease History - Family Disease History Family Disease History: Diabetes: Grandparent, Other: Mother (mental illness) Review of Systems - Review of Systems Constitutional: reports: No Symptoms Eyes: reports: No Symptoms HENT: reports: No Symptoms Neck: reports: No Symptoms Cardiovascular: reports: No Symptoms Respiratory: reports: No Symptoms Gastrointestinal: reports: No Symptoms Genitourinary: reports: No Symptoms Breasts: reports: No Symptoms Reported Musculoskeletal: reports: No Symptoms Integumentary: reports: No Symptoms Neurological: reports: No Symptoms Endocrine: reports: No Symptoms Hematology/Lymphatic: reports: No Symptoms Psychiatric: reports: No Symptoms Physical Exam - Maternity Constitutional: Yes: Well Nourished, No Distress, Calm Eyes: Yes: WNL, Conjunctiva Clear, EOM Intact HENT: Yes: WNL, Atraumatic, Normocephalic Neck: Yes: WNL, Supple, Trachea Midline Cardiovascular: Yes: WNL, Regular Rate and Rhythm Breast(s): Yes: WNL - Abdominal Exam/OB Fundal Height: 40 Number of Fetuses: Single Presentation: Vertex Contractions: Yes Regularity: Irregular Intensity: Mod/Strong Monitor Mode: External Heart Rate Location: [facility] Category: I Accelerations: Uniform Decelerations: Variable - Vaginal Exam/OB Vaginal Bleediing: Bloody Show Speculum Exam: No Dilatation (cm): 6 cm Effacement (%): 80 Amniotic Membrane Status: Bulging Presentation: Vertex/Position Station: -3 - Physical Exam Musculoskeletal: Yes: WNL Extremities: Yes: WNL Edema: LLE: Trace, RLE: Trace Deep Tendon Reflex Grade: Normal +2 Psychiatric: Yes: WNL Hemorrhage Risk Assessment - Risk Factors Medium Risk Factors: Yes: Greater than 4 previous births Risk Score: 1 Risk Level: Medium Risk Problem List - Problems (1) with 37 weeks completed gestation Code(s): Z3A.37 - 37 WEEKS GESTATION OF (2) Labor established Code(s): DTN4725 - (3) Asthma affecting , antepartum Code(s): O99.519 - DISEASES OF THE RESP SYS COMP , UNSP TRIMESTER; J45.909 - UNSPECIFIED ASTHMA, UNCOMPLICATED (4) Obesities, morbid Code(s): E66.01 - MORBID (SEVERE) OBESITY DUE TO EXCESS CALORIES (5) Grand multipara in labor Code(s): O09.40 - SUPERVISION OF W GRAND MULTIPARITY, UNSP TRIMESTER Qualifiers: Trimester: third trimester Qualified Code(s): O09.43 - Supervision of with grand multiparity, third trimester Assessment/Plan admit, FHM, admit for vaginal delivery
[2017-10-19] MEDS ORDERED: AMPICILLIN - 2 GM in SODIUM CHLORIDE 100 ML IVPB ONE (08:00)
[2017-10-19 08:25] VITALS: BMI 41.5
[2017-10-19 09:05] LABS: BASO % 0.6 % (0-2.0); EOS % 1.3 % (0-4.5); HEMATOCRIT 29.5 % (32.4-45.2); HEMOGLOBIN 8.7 GM/dL (10.7-15.3); LYMPH % 18.8 % (8-40); MCH 20.1 pg (25.7-33.7); MCHC 29.5 g/dl (32.0-36.0); MEAN CELL VOLUME 67.9 fl (80-96); MEAN PLT VOLUME 8.4 fl (7.5-11.1); MONO % 5.6 % (3.8-10.2); NEUT % 73.7 % (42.8-82.8); PLATELET COUNT 262 K/MM3 (134-434); RBC 4.35 M/mm3 (3.60-5.2); RDW 16.5 % (11.6-15.6); WHITE BLOOD COUNT 9.9 K/mm3 (4.0-10.0)
[2017-10-19 09:12] LABS: URINE APPEARANCE CLEAR; URINE BILIRUBIN NEGATIVE (NEGATIVE); URINE BLOOD 3+ (NEGATIVE); URINE COLOR LTYELLOW; URINE GLUCOSE (UA) NEGATIVE (NEGATIVE); URINE KETONE NEGATIVE (NEGATIVE); URINE NITRITE NEGATIVE (NEGATIVE); URINE PROTEIN NEGATIVE (NEGATIVE)
[2017-10-19 09:19] LABS: URINE LEUK ESTERASE 1+ (NEGATIVE)
[2017-10-19 09:20] LABS: INR 0.93 (0.82-1.09); PROTHROMBIN TIME (PATIENT) 10.5 SEC (9.98-11.88)
[2017-10-19 09:35] LABS: ALBUMIN 2.2 g/dl (3.4-5.0); ANION GAP 9 (8-16); BLOOD UREA NITROGEN 6 mg/dL (7-18); CALCIUM 7.8 mg/dL (8.5-10.1); CHLORIDE 106 mmol/L (98-107); CO2 21 mmol/L (21-32); CREATININE 0.5 mg/dL (0.55-1.02); GLUCOSE,RANDOM 70 mg/dL (74-106); POTASSIUM 3.9 mmol/L (3.5-5.1); SGOT/AST 14 U/L (15-37); SGPT/ALT 12 U/L (12-78); SODIUM 136 mmol/L (136-145)
[2017-10-19 09:37] LABS: ALK PHOS 374 U/L (45-117); BILIRUBIN,TOTAL 0.4 mg/dL (0.2-1.0); TOT PROT 6.5 g/dl (6.4-8.2)
[2017-10-19 09:39] LABS: EPI CELLS RARE /HPF (FEW)
[2017-10-19 09:46] LABS: COCAINE, UR NEGATIVE ng/ml (CUTOFF=300); METHADONE, UR NEGATIVE ng/ml (CUTOFF=300); OPIATES, URI NEGATIVE ng/ml (CUTOFF=300); PHENCYCLIDINE,URINE NEGATIVE ng/ml (CUTOFF=25); URINE AMPHETAMINES NEGATIVE ng/ml (CUTOFF=500); URINE BARBITURATES NEGATIVE ng/ml (CUTOFF=200); URINE BENZODIAZEPINES NEGATIVE ng/ml (CUTOFF=200)
[2017-10-19 09:55] LABS: ACTIVATED PTT 27.1 SECONDS (26.9-34.4)
[2017-10-19] MEDS ORDERED: ceFAZolin SODIUM 1 GM VIAL IVPB ONE ×2 (10:57→14:14)
[2017-10-19 11:05] LABS: ARTERIAL BLD GAS O2 SATURATION 11.8 % (90-98.9); ARTERIAL BLOOD GAS BASE EXCESS -1.7 meq/l (-2-2); ARTERIAL BLOOD GAS PCO2 56.8 mmHg (35-45); ARTERIAL BLOOD GAS pH 7.28 (7.35-7.45)
[2017-10-19 11:08] LABS: VENOUS PC02 50.4 mmHg (38-52); VENOUS PH 7.3 (7.32-7.42)
[2017-10-19 11:09] LABS: VENOUS PO2 23.9 mmHg (28-48)
[2017-10-19 11:12] LABS: ARTERIAL BLOOD GAS PO2 11.5 mmHg (80-100)
[2017-10-19] MEDS ORDERED: IBUPROFEN 800 MG/8 ML IJ IVPB PRN (11:31)
[2017-10-19] MEDS ORDERED: BENZOCAINE 28 GM HEMORRHOIDAL OINTMENT PR PRN (11:31)
[2017-10-19] MEDS ORDERED: IBUPROFEN 600 MG TABLET (FP) PO PRN (11:31)
[2017-10-19] MEDS ORDERED: SIMETHICONE 80 MG TAB.CHEW (FP) PO PRN (11:31)
[2017-10-19] MEDS ORDERED: WITCH HAZEL 50% (TUCKS) 40 PAD/JAR PAD TP PRN (11:31)
[2017-10-19] MEDS ORDERED: oxyCODONE HCL 5 MG TABLET PO PRN ×2 (11:31)
[2017-10-19] MEDS ORDERED: diphenhydrAMINE HCL 25 MG CAPSULE (FP) PO PRN (11:31)
[2017-10-19] MEDS ORDERED: METHYLERGONOVINE MALEATE 0.2 MG/1 ML AMP IM PRN (11:31)
[2017-10-19] MEDS ORDERED: BENZOCAINE 20% 57 GM BOTTLE TP PRN (11:31)
[2017-10-19] MEDS: HYDROmorphone HCL CARPU-JECT 2 MG/1 ML DISP.SYRIN ONE ×2 (11:40→12:00)
[2017-10-19] MEDS ORDERED: DEXTROSE 5%-LACTATED RINGERS 1,000 ML IV SCH (11:45)
[2017-10-19] MEDS ORDERED: OXYTOCIN 20 UNITS in 0.9% NS 20 UNIT/1,000 ML INFUS.BAG IV SCH (11:45)
[2017-10-19] MEDS ORDERED: DEXAMETHASONE SOD PHOSPHATE 4 MG/1 ML VIAL IVPUSH ONE (11:45)
[2017-10-19] MEDS ORDERED: ONDANSETRON 4 MG/2 ML VIAL IVPUSH PRN (11:45)
[2017-10-19] MEDS ORDERED: HYDROmorphone *PCA* 10MG/50ML DISP.SYRIN PCA SCH (11:45)
[2017-10-19] MEDS ORDERED: AMPICILLIN - 1 GM in SODIUM CHLORIDE 100 ML IVPB SCH (12:00)
[2017-10-19] MEDS ORDERED: TUBERCULIN PPD 5 TU/0.1ML SYRINGE (IN PATIENT USE ONLY) ID ONE (12:00)
--- NOTE | 2017-10-19 12:17 | SURG ---
Surgery Physical Sciences Professor Note Physical Sciences Professor: Durga Carey PA-C Date of Service: 10/19/17 Diagnosis: 37 weeks Vaginal bleeding in labor. Anemic. Baby position - transverse lie Procedure: Emergency crash section I was present for the entirety of the operative procedure. For further detail, please refer to operative report. Visit type - Case Type Case Type: Scheduled Admission - Emergency Emergency Visit: Yes ED Registration Date: 10/19/17 Care time: The patient presented to the Emergency Department on the above date and was hospitalized for further evaluation of their emergent condition. - New patient This patient is new to me today: Yes Date on this admission: 10/19/17
[2017-10-19] MEDS ORDERED: PHENYLEPHRINE HCL 10 MG/1 ML SINGLE DOSE VIAL ONE (12:53)
[2017-10-19] MEDS ORDERED: NOREPINEPHRINE BITARTRATE 4 MG/4 ML ML IV ONE ×3 (13:07→20:41)
[2017-10-19] MEDS ORDERED: NOREPINEPHRINE BITARTRATE 4,000 MCG in DEXTROSE 5%-WATER - 496 ML IV SCH (13:15)
[2017-10-19 13:32] LABS: HEMATOCRIT 24.7 % (32.4-45.2); HEMOGLOBIN 7.4 GM/dL (10.7-15.3); MCH 23.4 pg (25.7-33.7); MCHC 30.2 g/dl (32.0-36.0); MEAN CELL VOLUME 77.4 fl (80-96); MEAN PLT VOLUME 8.5 fl (7.5-11.1); PLATELET COUNT 309 K/MM3 (134-434); RBC 3.19 M/mm3 (3.60-5.2); RDW 21.7 % (11.6-15.6); WHITE BLOOD COUNT 24.6 K/mm3 (4.0-10.0)
[2017-10-19 13:49] LABS: INR 1.09 (0.82-1.09); PROTHROMBIN TIME (PATIENT) 12.3 SEC (9.98-11.88)
[2017-10-19 13:52] LABS: ACTIVATED PTT 32.3 SECONDS (26.9-34.4)
[2017-10-19] MEDS ORDERED: fentaNYL CITRATE 250 MCG/5 ML VIAL ONE ×2 (13:56→15:29)
[2017-10-19] MEDS ORDERED: ROCURONIUM BROMIDE 50 MG/5 ML VIAL ONE ×3 (13:56→15:43)
[2017-10-19] MEDS ORDERED: ETOMIDATE 20 MG/10 ML AMPUL IVPUSH ONE (13:56)
[2017-10-19] MEDS ORDERED: VASOPRESSIN 20 UNITS/ML VIAL IV ONE ×2 (14:06→14:09)
[2017-10-19] MEDS ORDERED: OXYTOCIN 10 UNITS/ML VIAL ONE ×3 (14:15→15:40)
[2017-10-19] MEDS ORDERED: ceFAZolin SODIUM 1 GM VIAL ONE (14:16)
--- NOTE | 2017-10-19 14:41 | RAPID ---
Physical Examination Vital Signs: Vital Signs Temperature 98.0 F 10/19/17 08:00 Pulse Rate 90 10/19/17 08:00 Respiratory Rate 20 10/19/17 08:00 Blood Pressure 117/62 10/19/17 08:00 O2 Sat by Pulse Oximetry (%) Findings/Remarks: UPDATE: Per A-line reading, BP was noted to be 86/56, Pt continued to be awake, however pale Levophed gtt was started on patient to be titrated for pressures Despite therapy transfused into patient, stat CBC showed H/H of 7.4/24.2 and platelets of 309 --Other labwork pending at this moment 4U PRBC stat ordered, 2U FFP ordered [total infusion of 6U PRBC, 1U FFP (with one infusing), and 1U platetets transfusing currently] Decision to return to the OR was made for intervention to stop hemorrhage Pt entered OR with obstetrics and anesthesia; ICU notified about situation for potential bed availability post-op Rapid response called in PACU around midday 27yo F s/p emergenct due low-lying placenta and excessive bleeding Original hemoglobin was 8.4 before surgical intervention with noted excessive blood loss in the OR by PACU nursing Pt is awake, in trendelenburg position with staff attending Anesthesia arrived alongside of Dr. Okeefe who took the command lead of the situation Upon arrival pt's pressures were 46/22 (repeats of 68/undectable, 50/30, 51/46) , Tachycardic at 155bpm, Saturation of 100% Gross evaluation of pt showed bleeding from vaginal area with gravid abdomen with C/D/I incision, Pt was pale, awake, alert, in Trendelenburg positioning At this point pt was receiving 3rd unit of PRBC A/P Massive transfusion protocol was activated Stat CBC, Fibrin Split products, PT/INR, PTT ordered 2U PRBC ordered 2U FFP ordered NS wide open infusing; so far 2.5L infused Stat bedside ultrasound was ordered to evaluate volume of fluid detectable in abdomen --Revealed moderate amount of fluid in RLQ A-line placement by anesthesia --A-line reading 89/58 pressures holding Central line R IJ was placed by anesthesia to accommodate need for pressors and access --STAT CXR ordered Labs: CBC, BMP 10/19/17 13:10 10/19/17 08:12
[2017-10-19] MEDS ORDERED: MIDAZOLAM 100 MG in SODIUM CHLORIDE 100 ML IV SCH (16:45)
[2017-10-19] MEDS ORDERED: FENTANYL INJECTION 500 MCG in DEXTROSE 5%-WATER - 90 ML IVPB SCH (17:00)
[2017-10-19 17:17] LABS: BASO % 0.2 % (0-2.0); EOS % 0.2 % (0-4.5); HEMATOCRIT 31.6 % (32.4-45.2); HEMOGLOBIN 10.2 GM/dL (10.7-15.3); LYMPH % 10.3 % (8-40); MCH 27.4 pg (25.7-33.7); MCHC 32.2 g/dl (32.0-36.0); MEAN CELL VOLUME 85.1 fl (80-96); MEAN PLT VOLUME 7.9 fl (7.5-11.1); MONO % 9.5 % (3.8-10.2); NEUT % 79.8 % (42.8-82.8); PLATELET COUNT 148 K/MM3 (134-434); RBC 3.71 M/mm3 (3.60-5.2); WHITE BLOOD COUNT 18.6 K/mm3 (4.0-10.0)
--- NOTE | 2017-10-19 17:17 | OP ---
Operative Note - Note: Operative Date: 10/19/17 Pre-Operative Diagnosis: Intrabdominal bleeding (hemorrhage), s/p C section. Operation: Exploration of retroperitoneal hematoma, control of bleeding, suture ligation of bleeding vessels. Introperative consultation. Findings: Retroperitoneal hematoma and around the left adnexa. No active bleeding , no vascular hemorrhage/ bleeding. Post-Operative Diagnosis: Same as Pre-op Surgeon: Levy Lowery Scrap Collector: London Okeefe Anesthesia: General Operative Report Dictated: Yes
--- NOTE | 2017-10-19 17:22 | CONSULT ---
Consult Consult Specialty:: Pulm/CCM Referred by:: Jad Reason for Consultation:: Hemmorhagic shock - History of Present Illness Chief Complaint: hemmorhagic shock History of Present Illness: this is a 27yo female who presented this morning at 37.5 weeks gestation in labor. Patient was admitted to L&D and asked for a bed araujo to urinate. While urinating large amount of clots came out of her vagina and she was taken to the OR for a . While patient was recovering in PACU she was noted to drop her SBP significantly into the 50's and patient became extremely tachycardic. Patient was resuscitated had an A-line placed had a central line placed Massive transfusion protocol initiated and patient was placed on levophed and vasopressin. patient too unstable to go to CT scan to r/o bleed so bedside abdominal US was done which was not conclusive. Patient was taken to the OR for an exploratory laparotomy and a retroperitoneal hemaotoma was found which was evacuated and ligation of bleeding vessels (uterine artery) was performed. Patient was received in ICU intubated and vented paralyzed and sedated. EBL around 3Liters she received total of 10 units PRBCs total of 4 units of FFP total of 1 unit platelets in the OR she received 3500ml crystalloid and had 200 urine output. Per anesthesia she had very dark and concentrated urine initially but now she has been diuresing. Baby is reportedly alive and well. - History Source History Provided By: Medical Record Limitations to Obtaining History: Intubated - Past Medical History Pulmonary: Yes: Asthma ...LMP: 10/02/16 Infectious Disease: Yes: STD's Psych: Yes: Depression - Alcohol/Substance Use Hx Alcohol Use: No History of Substance Use: reports: None - Smoking History Smoking history: Never smoked Have you smoked in the past 12 months: No - Social History ADL: Independent Home Medications - Allergies Allergies/Adverse Reactions: Allergies Allergy/AdvReac Type Severity Reaction Status Date / Time No Known Allergies Allergy Verified 08/13/17 10:22 - Home Medications Home Medications: Ambulatory Orders Albuterol 0.083% Nebulizer Gabby [Ventolin 0.083% Nebulizer Soln -] 1 neb NEB Q4H PRN #1 vial 08/13/17 Albuterol Sulfate Inhaler - [Ventolin HFA Inhaler -] 2 inh PO Q4H PRN #1 inh MDD 6 08/13/17 Family Disease History - Family Disease History Family History: Unable to Obtain Family Disease History: Diabetes: Grandparent, Other: Mother (mental illness) Review of Systems Unable to obtain ROS, reason: itnubated and sedated Physical Exam Vital Signs: Vital Signs Temperature 98.3 F 10/19/17 13:57 Pulse Rate 76 10/19/17 16:00 Respiratory Rate 28 H 10/19/17 16:00 Blood Pressure 134/64 10/19/17 16:00 O2 Sat by Pulse Oximetry (%) 100 10/19/17 13:57 Constitutional: Yes: No Distress, Obese Eyes: Yes: Conjunctiva Clear, PERRL HENT: Yes: Atraumatic, Normocephalic Neck: Yes: Supple, Trachea Midline Cardiovascular: Yes: Regular Rate and Rhythm, S1, S2. No: Murmur Respiratory: Yes: Diminished (on left when compared to right), Other (right side clear to auscultation) Gastrointestinal: Yes: Soft, Abdomen, Obese, Distention Renal/: Yes: Hale Present (draining yellow clear urine) Edema: LLE: Trace, RLE: Trace Wound/Incision: Yes: Clean/Dry, Dressing Dry and Intact Imaging - Results Chest X-ray: Report Reviewed, Image Reviewed Assessment/Plan 27F with no significant PMH presented in labor s/p found to be hypotensive in stage 4 hemorrhagic shock POD#0 s/p exploratory laparotomy evacuation of retroperitoneal hematoma and ligation of bleeding vessels including uterine artery Stage 4 hemorrhagic/hypovolemic shock secondary to uterine artery bleed: s/p 10 units PRBCs 4 units FFP 1 unit platelets Trend H/H transfuse PRN titrate off pressors strick I/O IVF NS @ 100ml/hr for resuscitation Trend lactic acid daily weight echo Intubated for airway protection and hemodynamic instability Give one more unit of FFP per CLOTH LAMINATING SUPERVISOR Possible DIC: Concern for DIC will send DIC labs including PT/INR PTT D Dimer Fibrinogen fibrin degredation products monitor from clots/blood loss from vagina Complete left lung atelectasis: left sided is boston out ET tube appears to be in the right mainstem bronchus will pull back and recheck CXR Lactic acidosis: give 1 liter bolus repeat lactic acid metabolic acidosis: likely from lactic acidosis should resolve with resolution of lactic acidosis trend ABG hyperkalemia: potassium 6.8 likely from massive transfusion give 10 units insulin with 1 amp D50 stat 2gm calcium gluconate albuterol nebulizer kayexolate-ok by Dr. Street at bedside recheck potassium level hypocalcemia: give 2gm calcium gluconate and re-check calcium level Leukocytosis: likely reactive if spikes fever will araujo culture will have low threshold to culture HIV negative Hypomagnesemia: give 2gm magnesium IV depression: Currently not active FEN: NS @ 100ml/hr see above for electrolytes NPO for now PPx: SCDs hold all anticoagulation for now Protonix PT consult when able to participate Case discussed with ICU attending CCTime 65min
[2017-10-19 17:33] LABS: INR 1.21 (0.82-1.09); PROTHROMBIN TIME (PATIENT) 13.7 SEC (9.98-11.88)
[2017-10-19 17:35] LABS: ACTIVATED PTT 33.7 SECONDS (26.9-34.4)
[2017-10-19 17:40] LABS: ARTERIAL BLOOD GAS BASE EXCESS -9.9 meq/l (-2-2); ARTERIAL BLOOD GAS PCO2 43.5 mmHg (35-45); ARTERIAL BLOOD GAS pH 7.22 (7.35-7.45)
[2017-10-19 17:55] LABS: ALLENS TEST POSITIVE; ARTERIAL BLD GAS O2 SATURATION 99.7 % (90-98.9)
[2017-10-19] MEDS ORDERED: CEFAZOLIN 1 GM/D5W 50 ML IVPB SCH (18:00)
[2017-10-19 18:14] LABS: ALBUMIN 1.8 g/dl (3.4-5.0); ANION GAP 8 (8-16); BLOOD UREA NITROGEN 9 mg/dL (7-18); CHLORIDE 112 mmol/L (98-107); CO2 17 mmol/L (21-32); CREATININE 0.7 mg/dL (0.55-1.02); GLUCOSE,RANDOM 144 mg/dL (74-106); PHOSPHOROUS 4.4 mg/dL (2.5-4.9); SGPT/ALT 14 U/L (12-78); SODIUM 137 mmol/L (136-145)
[2017-10-19 18:16] LABS: ALK PHOS 139 U/L (45-117); BILIRUBIN,TOTAL 1.7 mg/dL (0.2-1.0)
[2017-10-19 18:31] LABS: CALCIUM 6.2 mg/dL (8.5-10.1); POTASSIUM 6.8 mmol/L (3.5-5.1)
[2017-10-19 18:32] LABS: MAGNESIUM 1.4 mg/dL (1.8-2.4); SGOT/AST 32 U/L (15-37)
[2017-10-19] MEDS ORDERED: INSULIN REGULAR HUMAN 100 UNITS/ML *VIAL IVPUSH ONE (18:33)
[2017-10-19] MEDS ORDERED: ALBUTEROL SO4 0.083% IH SOL 2.5 MG/3 ML VIAL.NEB. NEB ONE (18:33)
[2017-10-19] MEDS ORDERED: DEXTROSE 50%-WATER - 25 GM/50 ML VIAL IVPUSH ONE (18:33)
[2017-10-19] MEDS ORDERED: CALCIUM GLUCONATE 10% - 1,000 MG/10 ML VIAL IVPB ONE ×2 (18:33→19:00)
[2017-10-19] MEDS ORDERED: SODIUM POLYSTYRENE SULFONATE 15 GM/60 ML BOTTLE PO ONE (18:34)
[2017-10-19] MEDS ORDERED: PT OWN MED DRAWER 7, Y5N ONE (18:42)
[2017-10-19] MEDS ORDERED: DEXTROSE 50%-WATER 25 GM/50 ML DISP.SYRIN ONE (18:43)
[2017-10-19] MEDS ORDERED: MAGNESIUM SULF 50% (8.12 MEQ/2 ML-1 GM VIAL) IVPB ONE (18:45)
[2017-10-19] MEDS ORDERED: SODIUM CHLORIDE 1,000 ML IV STA (18:56)
[2017-10-19] MEDS ORDERED: VASOPRESSIN 50 UNITS in SODIUM CHLORIDE 97.5 ML IVPB SCH ×3 (19:00→20:00)
--- NOTE | 2017-10-19 19:15 | PN ---
Progress Note (short form) - Note Progress Note: 10 06 am was called by nurse Delfina Mon patient was on bed araujo ,after had difficulty picking up heart, and had increased vaginal bleeding ,patient stated she felt baby flipped over while on bed araujo . vaginal exam moderate amount of vaginal bleeding noted ,cx 6 cm 80 bulging membrane, presenting part not felt , fhr 130 noted , advised c/s stat , case discussed` with patient , Risks benfit discussed , agreed , consent signed. neonatology , anesthesia notified Problem List - Problems (1) with 37 weeks completed gestation Code(s): Z3A.37 - 37 WEEKS GESTATION OF (2) Labor established Code(s): MAF3001 - (3) Asthma affecting , antepartum Code(s): O99.519 - DISEASES OF THE RESP SYS COMP , UNSP TRIMESTER; J45.909 - UNSPECIFIED ASTHMA, UNCOMPLICATED (4) Obesities, morbid Code(s): E66.01 - MORBID (SEVERE) OBESITY DUE TO EXCESS CALORIES (5) Grand multipara in labor Code(s): O09.40 - SUPERVISION OF W GRAND MULTIPARITY, UNSP TRIMESTER Qualifiers: Trimester: third trimester Qualified Code(s): O09.43 - Supervision of with grand multiparity, third trimester
--- NOTE | 2017-10-19 19:25 | OP ---
Operative Note - Note: Operative Date: 10/19/17 Pre-Operative Diagnosis: 37 weeks, multiparity, labor, obesity, vaginal bleeding during labor, Operation: primary LST c/s Findings: multiple large blood vessele low uterine and mid uterine wall, low lying placenta , transverse lie, clear amniotic fluid Surgeon: London Okeefe Resort Keeper: Durga Carey Anesthesiologist/MANAGEMENT ANALYST: Opal Ulrich Anesthesia: General Specimens Removed: placenta Estimated Blood Loss (mls): 900 Blood Volume Replaced (mls): 3 Operative Report Dictated: Yes
[2017-10-19] MEDS ORDERED: PROPOFOL 1,000,000 MCG/100 ML VIAL IVPB SCH (19:30)
[2017-10-19] MEDS: SODIUM CHLORIDE 1,000 ML IV SCH (19:58)
[2017-10-19] MEDS ORDERED: NOREPINEPHRINE BITARTRATE 4,000 MCG in SODIUM CHLORIDE 0.45% 496 ML IV SCH (20:00)
[2017-10-19] MEDS: CEFAZOLIN 1 GM PUSH 1 GM/10 ML DISP.SYRIN IVPUSH SCH (20:10)
[2017-10-19] MEDS ORDERED: NOREPINEPHRINE BITARTRATE 8,000 MCG in SODIUM CHLORIDE 0.45% 992 ML IV SCH (20:15)
[2017-10-19] MEDS ORDERED: NOREPINEPHRINE BITARTRATE 4,000 MCG in SODIUM CHLORIDE 496 ML IV SCH ×2 (20:16→20:30)
--- NOTE | 2017-10-19 21:02 | PN ---
Progress Note (short form) - Note Progress Note: i was called to recovery room to evaluate patient after emergency c/s for low lying placenta ,had low BP and was tachycardic .initial evaluation showed bp 86/ 56 on vasopressin, hert rate 146, looks pale , awake and alert abdomen soft, no distension, uterus firm at umbilicus, vaginal exam , small to moderate vaginal bleeding ,which stopped after massaging the uterus . A line , and central line was placed by anesthesia, blood and fresh frozen plasma, platletes orderd , bed side sono showed small amount free fluid in LT gutter, no intra abdominal or blood under diaphragm seen despite of vasopressin and blood and fluid replacement,patient continue to be hypotensive and tachycardic , decision made to take patient back to or for exploratory lap, after stabilizing vital signs , patient awake , discussed case with , agreed signed consent , not intrested to have any more baby, has signed BTL consent wants tubal ligation. case also discussed with patients mom a made aware of her condition Problem List - Problems (1) with 37 weeks completed gestation Code(s): Z3A.37 - 37 WEEKS GESTATION OF (2) Labor established Code(s): [id number] - (3) Asthma affecting , antepartum Code(s): O99.519 - DISEASES OF THE RESP SYS COMP , UNSP TRIMESTER; J45.909 - UNSPECIFIED ASTHMA, UNCOMPLICATED (4) Obesities, morbid Code(s): E66.01 - MORBID (SEVERE) OBESITY DUE TO EXCESS CALORIES (5) Grand multipara in labor Code(s): O09.40 - SUPERVISION OF W GRAND MULTIPARITY, UNSP TRIMESTER Qualifiers: Qualified Code(s): O09.43 - Supervision of with grand multiparity, third trimester
--- NOTE | 2017-10-19 21:19 | OP ---
Operative Note - Note: Operative Date: 10/19/17 Pre-Operative Diagnosis: hypotension, post c/s, r/o intrabdominal bleed Operation: exploratory lap. ligation of LT uterine artery, hemostasis of LT broad ligament Findings: large hematoma lt broad ligament Surgeon: London Okeefe (DR HARVEY, DR waller ,consulting) Clinical Pharmacologist: Francois Byrd Anesthesiologist/TANK CALIBRATOR: Opal Ulrich Anesthesia: General Specimens Removed: both fallopian tube Estimated Blood Loss (mls): 2,000 Blood Volume Replaced (mls): 10 (10 u pack rbc , 4 units FFP, platelets) Operative Report Dictated: Yes
[2017-10-19] MEDS: MUPIROCIN 2% TOPICAL OINTMENT FOR DECOLONIZATION NS SCH (21:29)
[2017-10-19] MEDS: CHLORHEXIDINE GLUCONATE 4% CLEANSER FOR DECOLONIZATION TP SCH (21:30)
[2017-10-19] MEDS: PANTOPRAZOLE SODIUM 40 MG VIAL IVPUSH SCH (21:31)
--- NOTE | 2017-10-19 21:48 | PN ---
Progress Note (short form) - Note Progress Note: patient visited in ICU Last Vital Signs Temp Pulse Resp BP Pulse Ox 98.4 F 94 H 16 104/66 100 10/19/17 21:00 10/19/17 21:35 10/19/17 21:00 10/19/17 21:35 10/19/17 21:00 Last Vital Signs Temp Pulse Resp BP Pulse Ox 98.4 F 94 H 16 104/66 100 10/19/17 21:00 10/19/17 21:35 10/19/17 21:00 10/19/17 21:35 21: 00 good urine out put, maintaining BP , titrating off vasopressin . plan monitor serial cbc Problem List - Problems (1) with 37 weeks completed gestation Code(s): Z3A.37 - 37 WEEKS GESTATION OF (2) Labor established Code(s): [id number] - (3) Asthma affecting , antepartum Code(s): O99.519 - DISEASES OF THE RESP SYS COMP , UNSP TRIMESTER; J45.909 - UNSPECIFIED ASTHMA, UNCOMPLICATED (4) Obesities, morbid Code(s): E66.01 - MORBID (SEVERE) OBESITY DUE TO EXCESS CALORIES (5) Grand multipara in labor Code(s): O09.40 - SUPERVISION OF W GRAND MULTIPARITY, UNSP TRIMESTER Qualifiers: Trimester: third trimester Qualified Code(s): O09.43 - Supervision of with grand multiparity, third trimester
[2017-10-19 21:56] LABS: HEMATOCRIT 24.9 % (32.4-45.2); HEMOGLOBIN 8.4 GM/dL (10.7-15.3); MCH 27.7 pg (25.7-33.7); MCHC 33.7 g/dl (32.0-36.0); MEAN CELL VOLUME 82.1 fl (80-96); MEAN PLT VOLUME 7.6 fl (7.5-11.1); PLATELET COUNT 62 K/MM3 (134-434); RBC 3.03 M/mm3 (3.60-5.2); RDW 16.3 % (11.6-15.6); WHITE BLOOD COUNT 8.7 K/mm3 (4.0-10.0)
[2017-10-19 22:26] LABS: ANION GAP 8 (8-16); BLOOD UREA NITROGEN 10 mg/dL (7-18); CALCIUM 7.1 mg/dL (8.5-10.1); CHLORIDE 113 mmol/L (98-107); CO2 21 mmol/L (21-32); CREATININE 0.7 mg/dL (0.55-1.02); GLUCOSE,RANDOM 92 mg/dL (74-106); POTASSIUM 3.5 mmol/L (3.5-5.1); SODIUM 142 mmol/L (136-145)
[2017-10-19] MEDS ORDERED: PROPOFOL 1,000,000 MCG/100 ML VIAL ONE (23:02)
[2017-10-19 23:13] LABS: ACTIVATED PTT 29.2 SECONDS (26.9-34.4); INR 1.04 (0.82-1.09); PROTHROMBIN TIME (PATIENT) 11.8 SEC (9.98-11.88)
[2017-10-20] MEDS: CEFAZOLIN 1 GM PUSH 1 GM/10 ML DISP.SYRIN IVPUSH SCH ×2 (01:18→10:26)
[2017-10-20] MEDS ORDERED: fentaNYL CITRATE 250 MCG/5 ML VIAL ONE ×2 (01:39→12:54)
[2017-10-20] MEDS ORDERED: PROPOFOL 1,000,000 MCG/100 ML VIAL ONE (03:42)
[2017-10-20 06:09] LABS: HBsAG SCREEN Negative (Negative)
[2017-10-20 06:19] LABS: BASO % 0.1 % (0-2.0); HEMATOCRIT 27.1 % (32.4-45.2); HEMOGLOBIN 9.5 GM/dL (10.7-15.3); LYMPH % 6.6 % (8-40); MCH 28.7 pg (25.7-33.7); MCHC 34.9 g/dl (32.0-36.0); MEAN CELL VOLUME 82.3 fl (80-96); MEAN PLT VOLUME 8.3 fl (7.5-11.1); MONO % 5.8 % (3.8-10.2); NEUT % 87.5 % (42.8-82.8); PLATELET COUNT 64 K/MM3 (134-434); RDW 17.3 % (11.6-15.6); WHITE BLOOD COUNT 8.2 K/mm3 (4.0-10.0)
[2017-10-20 06:26] LABS: INR 0.97 (0.82-1.09)
[2017-10-20 07:15] LABS: ARTERIAL BLOOD GAS BASE EXCESS -5.6 meq/l (-2-2); ARTERIAL BLOOD GAS PCO2 33.9 mmHg (35-45); ARTERIAL BLOOD GAS pH 7.36 (7.35-7.45)
[2017-10-20 07:22] LABS: ALBUMIN 1.9 g/dl (3.4-5.0); ANION GAP 7 (8-16); BLOOD UREA NITROGEN 8 mg/dL (7-18); CALCIUM 7.1 mg/dL (8.5-10.1); CHLORIDE 112 mmol/L (98-107); CO2 22 mmol/L (21-32); GLUCOSE,RANDOM 80 mg/dL (74-106); MAGNESIUM 1.7 mg/dL (1.8-2.4); POTASSIUM 4.5 mmol/L (3.5-5.1); SODIUM 141 mmol/L (136-145)
[2017-10-20 07:25] LABS: ALK PHOS 118 U/L (45-117); BILIRUBIN,TOTAL 1.5 mg/dL (0.2-1.0); CREATININE 0.6 mg/dL (0.55-1.02); PHOSPHOROUS 3.6 mg/dL (2.5-4.9); SGOT/AST 37 U/L (15-37); SGPT/ALT 13 U/L (12-78); TOT PROT 4.3 g/dl (6.4-8.2)
[2017-10-20 07:43] LABS: ARTERIAL BLD GAS O2 SATURATION 99.6 % (90-98.9)
--- NOTE | 2017-10-20 08:32 | PN ---
Progress Note (short form) - Note Progress Note: Anesthesia Post op Pt seen and examined S:intubated and sedated O: Vital Signs Temperature 98.9 F 10/20/17 06:00 Pulse Rate 81 10/20/17 06:00 Respiratory Rate 20 10/20/17 06:45 Blood Pressure 101/62 10/20/17 06:00 O2 Sat by Pulse Oximetry (%) 100 10/19/17 21:00 CBC, BMP 10/20/17 05:50 10/20/17 05:50 A/P: Current Active Problems Asthma affecting , antepartum (Acute) Grand multipara in labor (Acute) Labor established (Acute) Obesities, morbid (Acute) with 37 weeks completed gestation (Acute) s/p c section and laparotomy due to hemorrage post op conditions improving consider extubation today Continue current care Jonathon Torres MD
--- NOTE | 2017-10-20 09:30 | PN ---
Progress Note (short form) - Note Progress Note: PULMONARY/CCM Pt seen and examined in the ICU. Remains intubated, sedated but arousable off sedation. Transfused 11 units PRBC, 5 units FFP, 2 units platelets, 2 units cryoprecipitate so far. Last Vital Signs Temp Pulse Resp BP Pulse Ox 98.9 F 97 H 26 H 101/62 99 10/20/17 06:00 10/20/17 09:00 10/20/17 09:00 10/20/17 06:00 10/20/17 09:00 Intake & Output 10/17/17 10/18/17 10/19/17 10/20/17 23:59 23:59 23:59 23:59 Intake Total 7519 840 Output Total 3425 800 Balance 4094 40 Weight 93.7 kg 95.396 kg Gen: intubated, sedated Heart: RRR Lung: scattered rhonchi Abd: soft, dressings dry Ext: trace edema CBC, BMP 10/20/17 05:50 10/20/17 05:50 Active Medications Albuterol Sulfate (Ventolin 0.083% Nebulizer Soln -) 1 amp NEB Q4H PRN PRN Reason: SHORT OF BREATH/WHEEZING Albuterol Sulfate (Ventolin Hfa Inhaler -) 2 puff IH Q4H PRN PRN Reason: SHORT OF BREATH/WHEEZING Chlorhexidine Gluconate (Hibiclens For Decolonization -) 1 applic TP HS JOSE ANTONIO Last Admin: 10/19/17 21:30 Dose: 1 applic Cefazolin Sodium (Ancef -) 1 gm in 10 mls @ 20 mls/hr IVPUSH Q8H-IV [facility]SE ANTONIO Stop: 10/20/17 17:59 Last Admin: 10/20/17 01:18 Dose: 20 mls/hr Sodium Chloride (Normal Saline -) 1,000 mls @ 100 mls/hr IV ASDIR [facility]SE ANTONIO Last Admin: 10/19/17 19:58 Dose: 100 mls/hr Fentanyl 500 mcg/ Dextrose 100 mls @ 10 mls/hr IVPB TITR JOSE ANTONIO; 50 MCG/HR PRN Reason: Protocol Last Admin: 10/19/17 17:20 Dose: 10 mls/hr Propofol (Diprivan -) 1,000,000 mcg in 100 mls @ 2.803 mls/hr IVPB TITR JOSE ANTONIO; 5 MCG/KG/MIN PRN Reason: Protocol Last Titration: 10/20/17 06:31 Dose: 40 mcg/kg/min, 22.426 mls/hr Methylergonovine Maleate (Methergine Injection -) 0.2 mg IM Q4H PRN PRN Reason: EXCESSIVE BLEEDING Mupirocin (Bactroban Ointment (For Decolonization) -) 1 applic NS BID [facility] Stop: 10/24/17 21:59 Last Admin: 10/19/17 21:29 Dose: 1 applic Ondansetron HCl (Zofran Injection) 4 mg IVPUSH Q4H PRN PRN Reason: NAUSEA AND/OR VOMITING Pantoprazole Sodium (Protonix Iv) 40 mg IVPUSH DAILY [facility] Last Admin: 10/19/17 21:31 Dose: 40 mg Witch María/Glycerin (Tucks Pads -) 1 pad TP PRN PRN PRN Reason: PAIN A/P s/p POD #1 Post op Acute Blood Loss Hemorrhagic Shock s/p ex-lap/evacuation of retroperitoneal hematoma/ligation of left uterine artery Lactic Acidosis - IVF - monitor H/H, coags - transfuse as needed - monitor lytes - change OGT to NGT as high bilious output per nursing - lighten sedation to assess mental status - spontaneous breathing trials as tolerated - mechanical DVT prophylaxis
[2017-10-20] MEDS ORDERED: MAGNESIUM SULF 50% (8.12 MEQ/2 ML-1 GM VIAL) IVPB ONE (09:45)
[2017-10-20] MEDS ORDERED: MAGNESIUM SULFATE IN WATER 2 GM/50 ML IVPB IVPB ONE (10:00)
[2017-10-20] MEDS: MUPIROCIN 2% TOPICAL OINTMENT FOR DECOLONIZATION NS SCH ×2 (10:26→21:24)
[2017-10-20] MEDS: PANTOPRAZOLE SODIUM 40 MG VIAL IVPUSH SCH (10:30)
[2017-10-20] MEDS ORDERED: MAGNESIUM SULF 50% (8.12 MEQ/2 ML-1 GM VIAL) ONE (11:02)
[2017-10-20] MEDS ORDERED: BISACODYL 10 MG SUPP.RECT RC PRN (11:31)
--- NOTE | 2017-10-20 13:03 | OP ---
DATE OF OPERATION: 10/19/2017 PREOPERATIVE DIAGNOSES: 1. , 37 weeks, labor, vaginal bleeding in labor. 2. Grand multiparity. 3. Obesity. POSTOPERATIVE DIAGNOSES: 1. , 37 weeks, labor, vaginal bleeding in labor. 2. Grand multiparity. 3. Obesity. 4. Low-lying placenta. 5. Amniotic fluid was clear. 6. Live baby, Apgars 7 and 9. PROCEDURE: Primary low-segment transverse section. SURGEON: London Okeefe MD ASSISTANT COMMISSIONER: EKATERINA Miller ANESTHESIA: Opal Ulrich MD and Chito Rose MD ESTIMATED BLOOD LOSS INTRAOPERATIVELY: Approximately 900 mL. BLOOD REPLACEMENT: Patient received blood transfusion intraoperatively. DESCRIPTION OF OPERATION: Patient was taken to the operating room. Under adequate general anesthesia and after abdomen was prepped and draped, a Pfannenstiel abdominal skin incision was made. This incision was carried through the fascia with knife and cautery. Then, the fascia was opened and then transversely cut with the Metzenbaum scissors. Then, the fascia was from the rectus muscle, was undermined, and then was cut with Dey scissors. Then, the muscles were split. Peritoneum was exposed and incised, and then, upon entering the abdominal cavity, both gutters were packed with a lap pad. Then, the lower uterine segment was identified. There were multiple large blood vessels crossing the lower uterine segment and also at the mid-uterine body. These large varicose veins were noted. Then, an area was identified, and then, uterovesical fold of peritoneum established. Bladder was pushed down, and then, with the knife, a low transverse uterine incision was made. Amniotic sac was entered, clear fluid. Then, the incision was extended laterally with bandage scissors. Then, baby was in a transverse position, was delivered via breech without any difficulty. The nasopharynx was suctioned. Cord was clamped and cut, and baby was attended by electric relay tester. Then, placenta was delivered manually. Uterine cavity was cleaned out of remaining tissue. There was a small amount of bleeding at the lower uterine segment. This area was tamponed with a lap pad, and the bleeding stopped. Then, the uterine incision was closed with 0 Biosyn continuous suture in 2 layers, and then, the second layer was closed, imbricating the first layer. Bladder flap was closed with 2-0 Biosyn continuous suture. There was a large varicosity of both adnexal areas noted. Pelvic cavity several times irrigated. No active bleeding was seen. There was one area in the lower uterine segment that was oozing, which was sutured with ligature suture of 0 Biosyn, and hemostasis was established. The area was examined several times. No active bleeding was seen. All the lap pad, sponge, and instrument counts were correct. Pelvic cavity was several times irrigated. Then, at this time, patient has developed hypotension during the operation, and so, the blood transfusion has started by the anesthesiologist. Then, peritoneum was closed with 0 Biosyn continuous suture. Muscles were brought together with interrupted suture of 0 Biosyn. Fascia was closed with 0 Biosyn continuous suture, subcutaneous fat with interrupted suture of 0 Biosyn, and the skin was closed with faustino. Patient tolerated the procedure well, left the OR in good condition. Derek [id number]
--- NOTE | 2017-10-20 13:45 | OP ---
DATE OF OPERATION: 10/19/2017 PREOPERATIVE DIAGNOSIS: Intraoperative consultation by Dr. Okeefe while doing control of postoperative hemorrhage following section. POSTOPERATIVE DIAGNOSIS: Retroperitoneal hematoma not active from bleeding from the left adnexa. PROCEDURE: Exploration of retroperitoneal hematoma, control of bleeding from the left adnexa and suture ligation of bleeding vessels. SURGEON: Teto Lowery MD SPRING REPAIRER HELPER HAND: London Okeefe MD ANESTHESIA: General anesthesia. OPERATIVE DESCRIPTION: I was called in intraoperatively to evaluate this 27-year-old woman who had emergency this morning and was found to have bleeding. When I was called in, patient's abdomen was already open. The bowel was packed cephalad and there were towels or lap pads that were soaked in blood. The incision was extended cephalad in the midline towards the umbilicus. The abdomen was open. The bowel was normal and it was retracted cephalad. There was bleeding around the left adnexa with hematoma extending retroperitoneally behind the left colon. The level of peritoneal deflection of the left colon was already incised. There were some blood clots in the retroperitoneum but no active bleeding. Further evaluating brought the source to be the left adnexa which was then divided between suture ligatures Dr. Okeefe. Patient was resuscitated by the anesthesiologist. Patient responded appropriately to fluid and blood resuscitation. Bleeding was under control. The rest of the procedure was continued by Dr. Okeefe. Derek [id number]
[2017-10-20 14:31] LABS: BASO % 0.1 % (0-2.0); HEMATOCRIT 27.8 % (32.4-45.2); HEMOGLOBIN 9.5 GM/dL (10.7-15.3); LYMPH % 4.8 % (8-40); MCH 27.7 pg (25.7-33.7); MCHC 34.2 g/dl (32.0-36.0); MEAN CELL VOLUME 81.1 fl (80-96); MEAN PLT VOLUME 8.4 fl (7.5-11.1); MONO % 4.8 % (3.8-10.2); NEUT % 90.3 % (42.8-82.8); PLATELET COUNT 73 K/MM3 (134-434); RBC 3.42 M/mm3 (3.60-5.2); RDW 17.1 % (11.6-15.6); WHITE BLOOD COUNT 11.9 K/mm3 (4.0-10.0)
--- NOTE | 2017-10-20 15:00 | PN ---
Progress Note, Physician - Current Medication List Current Medications: Active Medications Albuterol Sulfate (Ventolin 0.083% Nebulizer Soln -) 1 amp NEB Q4H PRN PRN Reason: SHORT OF BREATH/WHEEZING Albuterol Sulfate (Ventolin Hfa Inhaler -) 2 puff IH Q4H PRN PRN Reason: SHORT OF BREATH/WHEEZING Chlorhexidine Gluconate (Hibiclens For Decolonization -) 1 applic TP HS JOSE ANTONIO Last Admin: 10/19/17 21:30 Dose: 1 applic Cefazolin Sodium (Ancef -) 1 gm in 10 mls @ 20 mls/hr IVPUSH Q8H-IV JOSE ANTONIO Stop: 10/20/17 17:59 Last Admin: 10/20/17 10:26 Dose: 20 mls/hr Sodium Chloride (Normal Saline -) 1,000 mls @ 100 mls/hr IV ASDIR JOSE ANTONIO Last Admin: 10/19/17 19:58 Dose: 100 mls/hr Fentanyl 500 mcg/ Dextrose 100 mls @ 10 mls/hr IVPB TITR JOSE ANTONIO; 50 MCG/HR PRN Reason: Protocol Last Admin: 10/19/17 17:20 Dose: 10 mls/hr Propofol (Diprivan -) 1,000,000 mcg in 100 mls @ 2.803 mls/hr IVPB TITR JOSE ANTONIO; 5 MCG/KG/MIN PRN Reason: Protocol Last Titration: 10/20/17 10:35 Dose: 0 mcg/kg/min, 0 mls/hr Methylergonovine Maleate (Methergine Injection -) 0.2 mg IM Q4H PRN PRN Reason: EXCESSIVE BLEEDING Mupirocin (Bactroban Ointment (For Decolonization) -) 1 applic NS BID [facility] Stop: 10/24/17 21:59 Last Admin: 10/20/17 10:26 Dose: 1 applic Ondansetron HCl (Zofran Injection) 4 mg IVPUSH Q4H PRN PRN Reason: NAUSEA AND/OR VOMITING Pantoprazole Sodium (Protonix Iv) 40 mg IVPUSH DAILY [facility] Last Admin: 10/19/17 21:31 Dose: 40 mg Witch María/Glycerin (Tucks Pads -) 1 pad TP PRN PRN PRN Reason: PAIN - Objective Vital Signs: Vital Signs Temperature 99.7 F H 10/20/17 10:00 Pulse Rate 106 H 10/20/17 11:15 Respiratory Rate 16 10/20/17 10:00 Blood Pressure 107/60 10/20/17 10:00 O2 Sat by Pulse Oximetry (%) 100 10/20/17 11:15 Labs: CBC, BMP 10/20/17 13:55 10/20/17 05:50 INR, PTT INR 0.97 (0.82-1.09) 10/20/17 05:50 Fibrinogen 193.0 mg/dL (238-498) L D 10/19/17 21:15 Assessment/Plan surgery; Patient is out of bed , in a chair. Talking, alert and oriented. hemodynamically stable. Hematocrit is stable. No bleeding , surgical issues. Will sign off. Call back if needed.
[2017-10-20] MEDS: oxyCODONE HCL 5 MG TABLET PO PRN (18:50)
[2017-10-20] MEDS ORDERED: HYDROmorphone HCL CARPU-JECT 1 MG/1 ML DISP.SYRIN ONE (21:12)
[2017-10-20] MEDS: HYDROmorphone HCL CARPU-JECT 1 MG/1 ML DISP.SYRIN IVPUSH PRN (21:17)
[2017-10-20] MEDS: SODIUM CHLORIDE 1,000 ML IV SCH (21:22)
[2017-10-20] MEDS: CHLORHEXIDINE GLUCONATE 4% CLEANSER FOR DECOLONIZATION TP SCH (21:24)
[2017-10-21] MEDS: HYDROmorphone HCL CARPU-JECT 1 MG/1 ML DISP.SYRIN IVPUSH PRN ×3 (00:25→09:57)
[2017-10-21 06:24] LABS: BASO % 0.1 % (0-2.0); HEMATOCRIT 23.9 % (32.4-45.2); HEMOGLOBIN 8.4 GM/dL (10.7-15.3); LYMPH % 6.4 % (8-40); MCH 28.6 pg (25.7-33.7); MEAN CELL VOLUME 81.7 fl (80-96); MEAN PLT VOLUME 9.2 fl (7.5-11.1); MONO % 5.7 % (3.8-10.2); NEUT % 87.8 % (42.8-82.8); PLATELET COUNT 99 K/MM3 (134-434); RBC 2.92 M/mm3 (3.60-5.2); RDW 16.7 % (11.6-15.6); WHITE BLOOD COUNT 11.4 K/mm3 (4.0-10.0)
[2017-10-21 06:32] LABS: INR 0.94 (0.82-1.09); PROTHROMBIN TIME (PATIENT) 10.6 SEC (9.98-11.88)
[2017-10-21 06:35] LABS: ACTIVATED PTT 27.3 SECONDS (26.9-34.4)
[2017-10-21 07:04] LABS: ALBUMIN 1.7 g/dl (3.4-5.0); ANION GAP 5 (8-16); BLOOD UREA NITROGEN 6 mg/dL (7-18); CALCIUM 7.2 mg/dL (8.5-10.1); CHLORIDE 111 mmol/L (98-107); CO2 26 mmol/L (21-32); GLUCOSE,RANDOM 118 mg/dL (74-106); SODIUM 142 mmol/L (136-145)
[2017-10-21 07:08] LABS: ALK PHOS 128 U/L (45-117); BILIRUBIN,TOTAL 0.6 mg/dL (0.2-1.0); CREATININE 0.4 mg/dL (0.55-1.02); PHOSPHOROUS 3.2 mg/dL (2.5-4.9); SGOT/AST 30 U/L (15-37); SGPT/ALT 12 U/L (12-78); TOT PROT 4.8 g/dl (6.4-8.2)
[2017-10-21] MEDS: MUPIROCIN 2% TOPICAL OINTMENT FOR DECOLONIZATION NS SCH (09:08)
[2017-10-21] MEDS: PANTOPRAZOLE SODIUM 40 MG VIAL IVPUSH SCH (09:08)
--- NOTE | 2017-10-21 09:36 | PN ---
Progress Note (short form) - Note Progress Note: PULMONARY/CCM Pt seen and examined in the ICU. Extubated yesterday without incident. Denies shortness of breath or chest pain. No further bleeding or transfusions required. Last Vital Signs Temp Pulse Resp BP Pulse Ox 98.1 F 87 27 H 108/65 100 10/21/17 05:48 10/21/17 08:35 10/21/17 08:35 10/21/17 08:35 10/20/17 20:21 Intake & Output 10/18/17 10/19/17 10/20/17 10/21/17 23:59 23:59 23:59 23:59 Intake Total 7519 3340 1300 Output Total 3425 1900 1700 Balance 4094 1440 -400 Weight 93.7 kg 95.396 kg 95.339 kg Gen: NAD at rest Heart: RRR Lung: decreased breath sounds at the bases Abd: soft, dressings dry Ext: trace edema CBC, BMP 10/21/17 06:00 10/21/17 06:00 Active Medications Albuterol Sulfate (Ventolin 0.083% Nebulizer Soln -) 1 amp NEB Q4H PRN PRN Reason: SHORT OF BREATH/WHEEZING Albuterol Sulfate (Ventolin Hfa Inhaler -) 2 puff IH Q4H PRN PRN Reason: SHORT OF BREATH/WHEEZING Chlorhexidine Gluconate (Hibiclens For Decolonization -) 1 applic TP HS [facility] Last Admin: 10/20/17 21:24 Dose: 1 applic Hydromorphone HCl (Dilaudid Injection -) 0.5 mg IVPUSH Q3H PRN PRN Reason: SEVERE PAIN Stop: 10/21/17 20:59 Last Admin: 10/21/17 06:28 Dose: 0.5 mg Sodium Chloride (Normal Saline -) 1,000 mls @ 100 mls/hr IV ASDIR [facility] Last Admin: 10/20/17 21:22 Dose: 100 mls/hr Methylergonovine Maleate (Methergine Injection -) 0.2 mg IM Q4H PRN PRN Reason: EXCESSIVE BLEEDING Mupirocin (Bactroban Ointment (For Decolonization) -) 1 applic NS BID [facility] Stop: 10/24/17 21:59 Last Admin: 10/21/17 09:08 Dose: 1 applic Ondansetron HCl (Zofran Injection) 4 mg IVPUSH Q4H PRN PRN Reason: NAUSEA AND/OR VOMITING Oxycodone HCl (Roxicodone -) 10 mg PO Q4H PRN PRN Reason: PAIN LEVEL 6-10 Last Admin: 10/20/17 18:50 Dose: 10 mg Pantoprazole Sodium (Protonix Iv) 40 mg IVPUSH DAILY [facility] Last Admin: 10/21/17 09:08 Dose: 40 mg Witch María/Glycerin (Tucks Pads -) 1 pad TP PRN PRN PRN Reason: PAIN A/P s/p POD #2 Post op Acute Blood Loss s/p Hemorrhagic Shock s/p ex-lap/evacuation of retroperitoneal hematoma/ligation of left uterine artery Lactic Acidosis resolved - d/c IVF - monitor H/H, coags - transfuse as needed - monitor lytes - d/c central line - PO as tolerated - mechanical DVT prophylaxis - can transfer to
[2017-10-21] MEDS ORDERED: POLYETHYLENE GLYCOL 3350 119 GM BTL PO SCH (10:00)
[2017-10-21] MEDS: oxyCODONE HCL 5 MG TABLET PO PRN ×4 (10:05→19:05)
[2017-10-21] MEDS ORDERED: ALBUTEROL SO4 0.083% IH SOL 2.5 MG/3 ML VIAL.NEB. NEB PRN (11:12)
[2017-10-21] MEDS ORDERED: ONDANSETRON 4 MG/2 ML VIAL IVPUSH PRN (11:12)
[2017-10-21] MEDS ORDERED: ALBUTEROL SO4 18 GM HFA INHALER IH PRN (11:12)
[2017-10-21] MEDS ORDERED: WITCH HAZEL 50% (TUCKS) 40 PAD/JAR PAD TP PRN (11:12)
[2017-10-21] MEDS ORDERED: METHYLERGONOVINE MALEATE 0.2 MG/1 ML AMP IM PRN (11:12)
[2017-10-21] MEDS ORDERED: TUBERCULIN PPD 5 TU/0.1ML SYRINGE (IN PATIENT USE ONLY) ID ONE (11:12)
[2017-10-21] MEDS: diphenhydrAMINE HCL 25 MG CAPSULE (FP) PO PRN ×2 (12:30→20:06)
[2017-10-21] MEDS ORDERED: BISACODYL 10 MG SUPP.RECT RC PRN (12:43)
[2017-10-21] MEDS: DOCUSATE SODIUM 100 MG CAPSULE (FP) PO SCH ×2 (14:13→21:45)
--- NOTE | 2017-10-21 14:41 | PN ---
Progress Note (short form) - Note Progress Note: pod 2 doing well, tolorating diet ,no actve vaginal bleeding CBC, BMP 10/21/17 06:00 10/21/17 06:00 Last Vital Signs Temp Pulse Resp BP Pulse Ox 98.2 F 96 H 14 115/74 97 10/21/17 10:00 10/21/17 10:00 10/21/17 10:00 10/21/17 10:00 10/21/17 11:15 abdomen soft,no distension, no cva incision dry, clean no calf tenderness plan ambulate , advance diet iron, vit , monitor cbc Problem List - Problems (1) with 37 weeks completed gestation Code(s): Z3A.37 - 37 WEEKS GESTATION OF (2) Labor established Code(s): [id number] - (3) Asthma affecting , antepartum Code(s): O99.519 - DISEASES OF THE RESP SYS COMP , UNSP TRIMESTER; J45.909 - UNSPECIFIED ASTHMA, UNCOMPLICATED (4) Obesities, morbid Code(s): E66.01 - MORBID (SEVERE) OBESITY DUE TO EXCESS CALORIES (5) Grand multipara in labor Code(s): O09.40 - SUPERVISION OF W GRAND MULTIPARITY, UNSP TRIMESTER Qualifiers: Trimester: third trimester Qualified Code(s): O09.43 - Supervision of with grand multiparity, third trimester
[2017-10-21] MEDS: FERROUS SO4 325 MG TABLET (FP) PO SCH (21:45)
[2017-10-21] MEDS ORDERED: SENNOSIDES/DOCUSATE COMBO (SENNA PLUS) TABLET (UD) PO PRN (22:00)
[2017-10-22] MEDS: oxyCODONE HCL 5 MG TABLET PO PRN ×3 (05:54→21:04)
[2017-10-22] MEDS: DOCUSATE SODIUM 100 MG CAPSULE (FP) PO SCH ×3 (05:54→21:04)
[2017-10-22] MEDS: PRENATAL VITAMINS W/ FOLIC ACID TABLET (FP) PO SCH (09:01)
[2017-10-22] MEDS: FERROUS SO4 325 MG TABLET (FP) PO SCH ×2 (09:01→21:04)
[2017-10-22 09:21] LABS: HEMATOCRIT 24.4 % (32.4-45.2); HEMOGLOBIN 8.1 GM/dL (10.7-15.3); MCH 27.5 pg (25.7-33.7); MCHC 33.3 g/dl (32.0-36.0); MEAN CELL VOLUME 82.7 fl (80-96); MEAN PLT VOLUME 8.7 fl (7.5-11.1); PLATELET COUNT 141 K/MM3 (134-434); RBC 2.95 M/mm3 (3.60-5.2); WHITE BLOOD COUNT 15.4 K/mm3 (4.0-10.0)
[2017-10-22 09:28] LABS: ANION GAP 8 (8-16); BLOOD UREA NITROGEN 8 mg/dL (7-18); CALCIUM 7.6 mg/dL (8.5-10.1); CHLORIDE 109 mmol/L (98-107); CO2 23 mmol/L (21-32); GLUCOSE,RANDOM 92 mg/dL (74-106); POTASSIUM 3.5 mmol/L (3.5-5.1); SODIUM 140 mmol/L (136-145)
[2017-10-22 09:31] LABS: CREATININE 0.4 mg/dL (0.55-1.02)
[2017-10-22] MEDS ORDERED: PANTOPRAZOLE SODIUM 40 MG VIAL IVPUSH SCH (10:00)
[2017-10-22 12:33] LABS: PLATELET ESTIMATE ADEQUATE
--- NOTE | 2017-10-22 16:27 | PN ---
Progress Note (short form) - Note Progress Note: pod 3 , doing well, ambulating, tolerating diet , passing gas Last Vital Signs Temp Pulse Resp BP Pulse Ox 97.9 F 75 18 115/73 97 10/22/17 07:10 10/22/17 07:10 10/22/17 07:10 10/22/17 07:10 10/21/17 11:15 abdomen soft, no distension , BS present incision dry, clean no calf tenderness no edema impression doing better. no evidence of bleeding plan cbc in am , revaluate CBC, BMP 10/22/17 08:00 10/22/17 08:00 Problem List - Problems (1) with 37 weeks completed gestation Code(s): Z3A.37 - 37 WEEKS GESTATION OF (2) Labor established Code(s): [id number] - (3) Asthma affecting , antepartum Code(s): O99.519 - DISEASES OF THE RESP SYS COMP , UNSP TRIMESTER; J45.909 - UNSPECIFIED ASTHMA, UNCOMPLICATED (4) Obesities, morbid Code(s): E66.01 - MORBID (SEVERE) OBESITY DUE TO EXCESS CALORIES (5) Grand multipara in labor Code(s): O09.40 - SUPERVISION OF W GRAND MULTIPARITY, UNSP TRIMESTER Qualifiers: Trimester: third trimester Qualified Code(s): O09.43 - Supervision of with grand multiparity, third trimester
[2017-10-23] MEDS: DOCUSATE SODIUM 100 MG CAPSULE (FP) PO SCH ×2 (06:00→14:00)
[2017-10-23] MEDS ORDERED: oxyCODONE HCL 5 MG TABLET PO PRN (08:52)
[2017-10-23] MEDS ORDERED: ACETAMINOPHEN 325 MG TABLET (FP) PO PRN (08:53)
[2017-10-23] MEDS: PRENATAL VITAMINS W/ FOLIC ACID TABLET (FP) PO SCH (09:13)
[2017-10-23] MEDS: FERROUS SO4 325 MG TABLET (FP) PO SCH (09:13)
[2017-10-23] MEDS: oxyCODONE HCL 5 MG TABLET PO PRN ×2 (09:14→15:36)
[2017-10-23] MEDS: ACETAMINOPHEN 325 MG TABLET (FP) PO PRN ×2 (09:15→15:37)
[2017-10-23 09:30] LABS: HEMATOCRIT 29.2 % (32.4-45.2); HEMOGLOBIN 9.8 GM/dL (10.7-15.3); MCH 27.6 pg (25.7-33.7); MCHC 33.5 g/dl (32.0-36.0); MEAN CELL VOLUME 82.5 fl (80-96); MEAN PLT VOLUME 7.8 fl (7.5-11.1); PLATELET COUNT 211 K/MM3 (134-434); RBC 3.53 M/mm3 (3.60-5.2); RDW 17.1 % (11.6-15.6); WHITE BLOOD COUNT 15.5 K/mm3 (4.0-10.0)
[2017-10-23 09:48] VITALS: BP 115/71; PULSE 79; TEMP 98.3
--- NOTE | 2017-10-23 10:42 | OP ---
DATE OF OPERATION: 10/19/2017 PREOPERATIVE DIAGNOSIS: Post emergency section with hypotension and tachycardia and anemia, rule out intraabdominal bleed. POSTOPERATIVE DIAGNOSIS: Post emergency section with hypotension and tachycardia and anemia, rule out intraabdominal bleed. Hematoma of the left broad ligament. SURGEON: London Okeefe MD HOTEL ADMINISTRATIVE ASSISTANT: Francois Byrd MD CONSULTING PHYSICIANS: Teto Lowery MD, and Roberto Enamorado MD DESCRIPTION OF PROCEDURE: In the operating room, patient was prepped and draped, and faustino were removed. Subcutaneous suture was removed with the scissors. Fascia was exposed, and the sutures were cut with the scissors, and the muscle sutures were cut, and muscles were . Peritoneum was entered. Up in the abdominal cavity, there was a small amount of blood seen in the lower part of the uterus, and there was a hematoma in the left broad ligament. At this time, consultation was obtained with Dr. Lowery and Dr. Enamorado, the vascular surgeon. They both attended the procedure. Then, the bladder flap was opened, and the bladder was pushed down. Uterine artery was identified on the left side and was , and then with a right angle clamp, and then, clamped and cut, and then, the suture was placed, and then, the uterine artery was ligated. Evaluation of the broad ligament showed a large hematoma in the left broad ligament, but no active source of bleeding was seen. The area was tamponade with a lap pad, and the pressure was applied until the patients blood pressure increased. Then, exploration of the broad ligament did not show any active blood vessel bleeding, but hematoma was noted, and there was small oozing seen at the hematoma site. This area was tamponade with the lap pad and pressure was applied. Dr. Lowery and Dr. Enamorado evaluated the hematoma and was advised to have with the tamponade with the lap pad and observation. I understand patient had requested to have her tubal ligation. The right tube was grasped with LigaSure bipolar cautery, cauterized along the mesosalpinx, and both tubes were removed. No active bleeding was seen at the site of that procedure. Then, again, hematoma was evaluated. No active bleeding was seen, but a small amount of oozing was seen from upper part of the hematoma. Floseal was applied in that area and Surgicel was applied, and then, pressure was applied. At the time of closure, no active bleeding was seen, but there was still a small amount of oozing from the hematoma site, but no active bleeding. Then, all the lap, sponge, and instrument counts were correct. Pelvic cavity several times irrigated. Again, no active bleeding was seen. Peritoneum was closed with 0 Biosyn continuous suture, muscles were brought together with interrupted sutures of 0 Biosyn, fascia was closed with 0 Biosyn continuous suture, subcutaneous fat with interrupted suture of 0 Biosyn, and the skin was closed with faustino. Patients blood pressure was stable, but still on vasopressin, was transferred to the ICU for observation. Derek [id number]
[2017-10-23 11:27] LABS: ANISOCYTOSIS 2+; PLATELET ESTIMATE NORMAL
--- NOTE | 2017-10-23 13:30 | PN ---
Progress Note (short form) - Note Progress Note: has herpetic lesion upper lip are no c/o ambulating, no dizziness , had BM last night , abdomen soft, no distension, no cva incison dry, clean no calf tenderness , no edema no active vaginal bleeding plan ambualte , d/c home, rtc on for faustino removal valtrex for 5 days hand washing and personal hygine CBC, BMP 10/23/17 09:17 10/22/17 08:00 Last Vital Signs Temp Pulse Resp BP Pulse Ox 98.3 F 79 18 115/71 97 10/23/17 09:45 10/23/17 09:45 10/23/17 09:45 10/23/17 09:45 10/21/17 11:15 Problem List - Problems (1) with 37 weeks completed gestation Code(s): Z3A.37 - 37 WEEKS GESTATION OF (2) Labor established Code(s): [id number] - (3) Asthma affecting , antepartum Code(s): O99.519 - DISEASES OF THE RESP SYS COMP , UNSP TRIMESTER; J45.909 - UNSPECIFIED ASTHMA, UNCOMPLICATED (4) Obesities, morbid Code(s): E66.01 - MORBID (SEVERE) OBESITY DUE TO EXCESS CALORIES (5) Grand multipara in labor Code(s): O09.40 - SUPERVISION OF W GRAND MULTIPARITY, UNSP TRIMESTER Qualifiers: Trimester: third trimester Qualified Code(s): O09.43 - Supervision of with grand multiparity, third trimester
[2017-10-23] MEDS ORDERED: PNEUMOC 13-VAL CONJ-DIP CRM/PF 0.5 ML DISP.SYRIN IM ONE (14:01)
[2017-10-23] MEDS ORDERED: DIPHTH,PERTUSS(ACELL),TET 0.5 ML DISP.SYRIN IM ONE (14:01)
[2017-10-23] MEDS ORDERED: FLU VACC QS2017-18 36MOS UP/PF 60 MCG/0.5 ML SYRINGE IM ONE (14:01)
[2017-10-23] MEDS ORDERED: PNEUMOCOCCAL 23 VACCINE 0.5 ML VIAL IM ONE (14:15)
--- NOTE | 2017-10-24 09:07 | DS ---
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 Vital Signs: Vital Signs Temperature 98.3 F 10/23/17 09:45 Pulse Rate 79 10/23/17 09:45 Respiratory Rate 18 10/23/17 09:45 Blood Pressure 115/71 10/23/17 09:45 O2 Sat by Pulse Oximetry (%) 97 10/21/17 11:15 Constitutional: Yes: Well Nourished, No Distress, Calm Eyes: Yes: WNL, Conjunctiva Clear, EOM Intact HENT: Yes: WNL, Atraumatic, Normocephalic Neck: Yes: WNL, Supple, Trachea Midline Cardiovascular: Yes: WNL, Regular Rate and Rhythm Respiratory: Yes: WNL, Regular, CTA Bilaterally Gastrointestinal: Yes: WNL ...Rectal Exam: Yes: WNL Renal/: Yes: WNL ....Post : Yes: Uterus firm, Uterus non-tender, Slight lochia rubra Breast(s): Yes: WNL Musculoskeletal: Yes: WNL Extremities: Yes: WNL Edema: No Integumentary: Yes: WNL Wound/Incision: Yes: Clean/Dry, Well Approximated, [place] Intact Neurological: Yes: WNL, Alert, Oriented ...Motor Strength: WNL Psychiatric: Yes: WNL, Alert, Oriented Labs: CBC, BMP 10/23/17 09:17 10/22/17 08:00 Delivery - Delivery Section: Primary, Low Flap Transverse (low lying placenta previa, transverse lie) Type of Anesthesia: General Episiotomy/Laceration: None EBL (cc): 900 Delivery, Single - Stages of Labor Date 1st Stage Initiatied: 10/19/17 Time 1st Stage Initiated: 05:00 Date of Delivery: 10/19/17 Time of Delivery: 10:32 Time Placenta Delivered: 10:33 Placenta: Yes: Expressed - Condition of Infant Rn Recruitment/Fighter Pilot Present: Yes Name: Tasneem Bonner Infant Gender: Male Weight: 5 lb 3 oz Total Hours ROM (Hrs/Mins): 2mins - 1 Minute Total Score: 7 5 Minutes Total Score: 9 - Feeding Plan Initial Plan: Elected not to breastfeed exclusively throughout hospitalization - Additional Information: baby has changed position to transverse lie , back up , delivered as breech with no difficulty Remarks - Remarks Remarks: had post op hypotension ,had exploratory lap, hemostasis of LT croad ligament hematoma Discharge Summary Reason For Visit: LABOR low lying placenta, vaginal bleeding in labor, baby turn spontaneously to transverse lie, had emergency LST c/s, Procedures: Principal: primary LST c/s Other Procedures: exploratory lap, for LT broadligament hematoma. recvived transfusion, FFP, platletes Hospital Course: transferred to ICU, 48 hours, Condition: Good - Instructions Diet, Activity, Other Instructions: regular diet, if fever, pain ,heavy bleeding call MD . follow up [facility] care on for staple removal Referrals: London Okeefe MD [Staff Physician] - Disposition: HOME - Home Medications Comprehensive Discharge Medication List: Ambulatory Orders Albuterol 0.083% Nebulizer Gabby [Ventolin 0.083% Nebulizer Soln -] 1 neb NEB Q4H PRN #1 vial 08/13/17 Albuterol Sulfate Inhaler - [Ventolin HFA Inhaler -] 2 inh PO Q4H PRN #1 inh MDD 6 08/13/17 Acyclovir [Zovirax -] 400 mg PO TID #10 tablet 10/23/17 Ferrous Sulfate 325 mg PO BID #90 tablet 10/23/17 Oxycodone HCl/Acetaminophen [Percocet 5-325 mg Tablet] 1 tab PO Q6H #30 tablet MDD 4 10/23/17 Vitamins (Sjr) - 1 tab PO DAILY #90 tablet 10/23/17
--- NOTE | 2017-10-24 14:47 | PATH ---
Surgical Pathology Report Patient Name: MYAH MELENDEZ [facility]. Rec. 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 Specimen(s) Received A: RIGHT FALLOPIAN TUBE B: LEFT FALLOPIAN TUBE C: PLACENTA Clinical History , 37.2 weeks x5 Primary with active bleeding, transverse presentation and low-lying placenta Final Diagnosis A. FALLOPIAN TUBE, RIGHT, EXCISION: FULL LUMINAL PORTION OF FALLOPIAN TUBE WITH MARKED VASCULAR CONGESTION, EDEMA AND HEMORRHAGE. B. FALLOPIAN TUBE, LEFT, EXCISION: FULL LUMINAL PORTION OF FALLOPIAN TUBE WITH MARKED VASCULAR CONGESTION, EDEMA AND HEMORRHAGE. C. PLACENTA, SECTION: 540 g THIRD TRIMESTER PLACENTA WITH TRIVASCULAR UMBILICAL CORD AND UNREMARKABLE PLACENTAL MEMBRANES. Electronically Signed Mahogany Savage M.D. Gross Description A. Received in formalin labeled "left fallopian tube," is a 5 cm in length fimbriated fallopian tube. The outer surface is bellamy purple and edematous. Sectioning reveals an unremarkable lumen. [employer] Developer sections are submitted in 2 cassettes as follows: 1-fimbria; 2-cross sections of fallopian tube. B. Received in formalin labeled "right fallopian tube," is a 6 cm in length fimbriated fallopian tube. The outer surface is bellamy purple and edematous. Sectioning reveals an unremarkable lumen. Web Analytics Developer sections are submitted in 2 cassettes as follows: 1-fimbria; 2-cross sections of fallopian tube. C. The specimen is received fresh labeled placenta and is a 540 gram, 15.5 x 14.0 x 3.0 cm. placenta with attached membranes and umbilical cord. The attached membranes are bradshaw, thick, cloudy and insert marginally. The umbilical cord measures 18 cm. in length and averages 1 cm. in diameter. The cord inserts centrally. No true knots or strictures are identified. Cut surface of the umbilical cord reveals 3 vessels. The surface is bellamy blue with moderate fibrin deposition and appropriate caliber vessels. The maternal surface is red-brown with focal defects. Sectioning reveals red-brown, spongy parenchyma. No lesions are identified. Web Analytics Developer sections are submitted in three cassettes as follows: 1- membrane rolls and umbilical cord; 2-3- full thickness sections of placenta. 10/23/201710/23/2017
== END 2017-10-23 19:50 | disposition home or self-care (01) | DRG 765 ==
LOC: JDEL 06:45 → JLDR 07:30 → JICU 16:36 → J3W 10-21 11:20
PROVIDERS: ADMIT Obstetrics & Gynecology; ATTEND Obstetrics & Gynecology
PROC: 0W3J0ZZ Control Bleeding in Pelvic Cavity, Open Approach (ICD-10-PCS; 2017-10-19)
PROC: 0UB70ZZ Excision of Bilateral Fallopian Tubes, Open Approach (ICD-10-PCS; 2017-10-19)
PROC: 4A133B1 Monitoring of Arterial Pressure, Peripheral, Percutaneous Approach (ICD-10-PCS; 2017-10-19)
PROC: 4A133J1 Monitoring of Arterial Pulse, Peripheral, Percutaneous Approach (ICD-10-PCS; 2017-10-19)
PROC: 02HV33Z Insertion of Infusion Device into Superior Vena Cava, Percutaneous Approach (ICD-10-PCS; 2017-10-19)
PROC: 30233N1 Transfusion of Nonautologous Red Blood Cells into Peripheral Vein, Percutaneous Approach (ICD-10-PCS; 2017-10-19)
PROC: 30233L1 Transfusion of Nonautologous Fresh Plasma into Peripheral Vein, Percutaneous Approach (ICD-10-PCS; 2017-10-19)
PROC: 30233P1 Transfusion of Nonautologous Frozen Red Cells into Peripheral Vein, Percutaneous Approach (ICD-10-PCS; 2017-10-19)
PROC: 30233R1 Transfusion of Nonautologous Platelets into Peripheral Vein, Percutaneous Approach (ICD-10-PCS; 2017-10-19)
PROC: 10D00Z1 Extraction of Products of Conception, Low, Open Approach (ICD-10-PCS; principal; 2017-10-19 10:38)
DX: O44.53 Low lying placenta with hemorrhage, third trimester (principal); T81.19XA Other postprocedural shock, initial encounter; Z68.41 Body mass index [BMI] 40.0-44.9, adult; E87.2 Acidosis; O71.5 Other obstetric injury to pelvic organs; J98.11 Atelectasis; O72.1 Other immediate postpartum hemorrhage; O99.214 Obesity complicating childbirth; E66.01 Morbid (severe) obesity due to excess calories; Z3A.37 37 weeks gestation of pregnancy; Y83.9 Surgical procedure, unspecified as the cause of abnormal reaction of the patient, or of later complication, without mention of misadventure at the time of the procedure; I95.81 Postprocedural hypotension; O26.893 Other specified pregnancy related conditions, third trimester; O32.2XX0 Maternal care for transverse and oblique lie, not applicable or unspecified; O76 Abnormality in fetal heart rate and rhythm complicating labor and delivery; O72.3 Postpartum coagulation defects; O67.8 Other intrapartum hemorrhage; Z37.0 Single live birth
CPT/HCPCS: 36415; 36430; 36511; 36600; 71045-TC; 74018-TC-FY; 76705-TC; 80048; 80053; 80307; 81003; 81015; 82803; 82962; 83605; 83735; 84100; 85025; 85027; 85362; 85379; 85384; 85610; 85730; 86593; 86762; 86850; 86900; 86901; 86922; 87340; 87389; 88302-TC; 88307-TC; 90686; 90715; 90732; 94002; 94010; 94640; 94760; G0009; P9012; P9017; P9034; P9038; P9058

== ENCOUNTER 2023-07-24 08:55 | Emergency (ER) | payer OTHER ==
[2023-07-24 09:03] VITALS: BP 108/69; TEMP 98.1; BMI 46.4
[2023-07-24] MEDS ORDERED: DEXAMETHASONE SOD PHOSPHATE 10 MG/1 ML VIAL IM ONE (09:49)
[2023-07-24] MEDS ORDERED: DEXAMETHASONE SOD PHOSPHATE 10 MG/1 ML VIAL ONE (10:00)
[2023-07-24] MEDS: ALBUTEROL SO4 2.5/IPRATROPIUM 0.5 INH SOL 3 ML VIAL.NEB. NEB SCH ×3 (10:09→10:32)
[2023-07-24 10:50] VITALS: PULSE 90; RESP 20
== END 2023-07-24 11:20 | disposition home or self-care (01) ==
LOC: JER 08:55
PROC: 3E023GC Introduction of Other Therapeutic Substance into Muscle, Percutaneous Approach (ICD-10-PCS; principal; 2023-07-24)
PROC: 3E0F7GC Introduction of Other Therapeutic Substance into Respiratory Tract, Via Natural or Artificial Opening (ICD-10-PCS; 2023-07-24)
DX: J45.901 Unspecified asthma with (acute) exacerbation (principal); R05.9 Cough, unspecified; R09.81 Nasal congestion; R07.89 Other chest pain; R06.02 Shortness of breath; R53.83 Other fatigue
CPT/HCPCS: 99284-25; J1100